=== PATIENT | male | born 1985 | race Caucasian/White ===

== ENCOUNTER 2020-09-14 19:04 | Emergency (ER) | payer MEDICAID, SELFPAY ==
--- NOTE | 2020-09-14 20:20 | XR_ITS ---
EXAMINATION: XR CHEST CLINICAL INFORMATION: Cough and shortness of breath COMPARISON: 11/17/2017 TECHNIQUE: Frontal view of the chest was obtained. FINDINGS: The lungs are hypoinflated. The heart size is normal. There is no evidence of CHF. Bibasilar atelectasis is present. No effusions, lung masses or consolidations are seen. XR/XR chest 1V IMPRESSION: Hypoinflated lungs with bibasilar atelectasis.
[2020-09-14 20:43] VITALS: BP 150/101; PULSE 88; RESP 22; TEMP 38.2; O2SAT 97; BMI 32.5
--- NOTE | 2020-09-14 21:01 | ED_ITS ---
HPI - URI/Sore Throat General Chief Complaint: Upper Respiratory Symptoms Stated Complaint: Cough Time Seen by Provider: 09/14/20 20:20 Source: patient Mode of arrival: ambulatory Limitations: no limitations History of Present Illness MD elicited complaint: cough Onset (ago): week(s) (1) Severity: moderate Description of mucous: clear Able to tolerate fluids by mouth: Yes Exacerbating factors: nothing Relieving factors: nothing Associated symptoms: denies other symptoms Treatments prior to arrival: none Related Data Previous Rx's Medication Instructions Recorded albuterol sulfate 2 puff INHALATION Q4-6H PRN #18 g 09/14/20 azithromycin [Zithromax Z-Cale] 250 mg PO DAILY 5 Days #6 tab 09/14/20 benzonatate [Tessalon Perles] 100 mg PO BID PRN #14 cap 09/14/20 Allergies Allergy/AdvReac Type Severity Reaction Status Date / Time No Known Allergies Allergy Unverified 06/16/20 18:34 Review of Systems Review of Systems: Constitutional: No Weight loss, No Fever, No Chills, No Night Sweats, No Fatigue, No Malaise ENT/Mouth: No Hearing loss, No Ear Pain, + Nasal Congestion, No Sinus Pain, No Hoarseness, No sore throat, No Rhinorrhea, No Swallowing Difficulty Eyes: No Eye Pain, No Swelling, No Redness, No Foreign Body, No Discharge, No Vision Changes Cardiovascular: No Chest Pain, No SOB, No Dyspnea on Exertion, No Orthopnea, No Edema, No Palpitations Respiratory: + Cough, No Sputum, No Wheezing, No Smoke Exposure, No Dyspnea Gastrointestinal: No Nausea, No Vomiting, No Diarrhea, No Constipation, No abdominal Pain, No Hematochezia, No Melena Genitourinary: no irregular bleeding, No Dysuria, No Urinary Frequency, No Hematuria, No Urinary Incontinence, No Urgency, No Flank Pain, No Urinary Flow Changes Musculoskeletal: No joint pain, No Myalgias, No Joint Swelling Skin: No Skin Lesions, No rash Neuro: No Weakness, No Numbness, No Paresthesias, No Loss of Consciousness, No Dizziness, No Headache Psych: No Social Issues Heme/Lymph: No Bruising, No Bleeding,No Lymphadenopathy Endocrine: No Polyuria, No Polydipsia, No Temperature Intolerance Yes all other systems are reviewed and are negative [facility] Past Medical History Medical History (Updated 09/14/20 @ 21:03 by Thiago Jamison NP) Hypertension Social History Social History Advance Directives: No Advance Directives Information Provided: No Physical Exam Vital Signs: Vital Signs: Last Vital Signs Temp 100.8 F H 09/14/20 20:43 Pulse 88 09/14/20 20:43 Resp 22 H 09/14/20 20:43 BP 150/101 H 09/14/20 20:43 Pulse Ox 97 09/14/20 20:43 Body Mass Index 32.5 Reviewed Const: General: cooperative and healthy appearing; No acute distress or intoxicated appearing Nutritional Appearance: average body habitus Orientation/consciousness: patient oriented x3 HENMT: Head: Yes normal to inspection Ears: hearing grossly normal bilaterally Eyes: General: appearance normal, both eyes and all related structures Visual Ramirez: normal visual ramirez by confrontation Neck: Neck: Yes normal visual inspection, No positive Brudzinski's sign, No positive Kernig's sign and No tender Thyroid: Thyroid normal Chest: Chest palpation & inspection: normal inspection of the chest Resp: Other: Fits of dry bronchial cough Effort & Inspection: normal respiratory effort Auscultation: clear to auscultation bilaterally Cardio: Jugular venous distension: no JVD Rhythm: regular rhythm Heart sounds: S1 normal heart sound present and S2 normal heart sound present GI: Inspection: Yes normal to inspection Percussion: Yes normal to percussion Auscultation: normal bowel sounds : General: Yes no CVA tenderness Back/Spine/Pelvis: Back: no CVA tenderness Skin: General skin exam: no rashes or lesions noted Neuro: General: patient oriented x3 Extrem: General: Yes normal to inspection Discharge Plan Discharge Clinical Impression: Upper respiratory infection Patient Disposition: Home, Self-Care Instructions: Upper Respiratory Infection (ED) Additional Instructions: Drink plenty of fluids Take medication prescribed Self-isolation/social distancing We have tested for COVID-19 this may take up to 3-5 days results we will call you to results Return if any concerns or worsening symptoms Thank you Prescriptions: New azithromycin [Zithromax Z-Cale] 250 mg tablet 250 mg PO DAILY 5 Days Qty: 6 RF: 0 benzonatate [Tessalon Perles] 100 mg capsule 100 mg PO BID PRN (Reason: cough) Qty: 14 RF: 0 albuterol sulfate 90 mcg/actuation HFA aerosol inhaler 2 puff inhalation Q4-6H PRN (Reason: shortness of breath or wheezing) Qty: 18 RF: 0 Referrals: Physician,Unknown [Primary Care Provider] - 1 week
== END 2020-09-14 21:29 | disposition home or self-care (01) ==
PROVIDERS: Nurse Practitioner Primary Care; Emergency Provider Emergency Medicine
DX: U07.1 COVID-19 (principal); J06.9 Acute upper respiratory infection, unspecified; I10 Essential (primary) hypertension; Z79.899 Other long term (current) drug therapy
CPT/HCPCS: 71045; 99283; U0003

== ENCOUNTER 2021-09-07 21:14 | Emergency (ER) | payer OTHER, SELFPAY ==
--- NOTE | ~2021-09-07 | XR_ITS ---
EXAMINATION: XR KNEE, LEFT CLINICAL INFORMATION: Unable to completely straighten knee. Wears a brace. COMPARISON: None TECHNIQUE: Four views of the left knee. FINDINGS: Bones and soft tissues are unremarkable aside from the presence of a probable joint effusion. No fractures. Alignment is anatomic. Joint spaces are well maintained. No abnormal soft tissue calcification. XR/XR knee LT 4V IMPRESSION: Small knee joint effusion
[2021-09-07 21:29] VITALS: BP 192/116; PULSE 89; RESP 20; TEMP 36.6; O2SAT 99; BMI 30.9
--- NOTE | 2021-09-07 22:44 | ED.LOWEXIN ---
HPI - Extremity Injury (Lower) General Chief Complaint: Extremity Injury, Lower Stated Complaint: Knee pain Source: patient Mode of arrival: ambulatory Limitations: no limitations History of Present Illness HPI Narrative: 36-year-old male presents with 1 week of left knee pain. Stated that he was lifting heavy box and fell into a rock hitting the lateral left side of his knee. He has been using ice, elevation, compression with poor effect. He has not taken any [id number] pain medications. MD complaint: knee injury Onset (ago): week(s) (1) Type of Injury: blunt Place: work Severity: moderate Severity scale (1-10): 6 Relieving factors: immobilization and rest Exacerbating factors: weight bearing, movement and palpation Context: direct blow Associated symptoms: swelling Other symptoms: none Treatments prior to arrival: cold therapy Related Data Previous Rx's Medication Instructions Recorded albuterol sulfate 90 mcg/actuation 2 puff INHALATION Q4-6H PRN #18 g 09/14/20 aerosol inhaler azithromycin 250 mg tablet 250 mg PO DAILY 5 Days #6 tab 09/14/20 (Zithromax Z-Cale) benzonatate 100 mg capsule 100 mg PO BID PRN #14 cap 09/14/20 (Tessalon Perles) Allergies Allergy/AdvReac Type Severity Reaction Status Date / Time No Known Allergies Allergy Verified 09/07/21 21:29 Review of Systems Review of Systems: Constitutional: No Fever, No Chills ENT/Mouth: No Ear Pain, No Hoarseness, No sore throat Eyes: No Eye Pain, No Swelling, No Redness, No Foreign Body Cardiovascular: No Chest Pain, No SOB Respiratory: No Cough, No Dyspnea Gastrointestinal: No Nausea, No Vomiting, No Diarrhea, No abdominal Pain Genitourinary: No Dysuria, No Hematuria Musculoskeletal: positive left knee pain, No Myalgias, No Joint Swelling Skin: No Skin lacerations, No rash Neuro: No Weakness, No Numbness, No Paresthesias, No Loss of Consciousness, No Dizziness, No Headache Psych: No Anxiety/Panic, No Depression Heme/Lymph: no easy bruising, no Lymphadenopathy Endocrine: No Polyuria, No Polydipsia Yes all other systems are reviewed and are negative [facility] Past Medical History Attestation statement: The following information was validated with the patient. Source: old records reviewed Medical History Hypertension Social History Social History Advance Directives: No Advance Directives Information Provided: Yes Physical Exam Vital Signs: Vital Signs: Last Vital Signs Temp 97.9 F 09/07/21 21:29 Pulse 89 09/07/21 21:29 Resp 20 09/07/21 21:29 BP 192/116 H 09/07/21 21:29 Pulse Ox 99 09/07/21 21:29 BMI result Body Mass Index 30.9 Appearance: Alert. Oriented X3. No acute distress. Eyes: Pupils equal, round and reactive to light. ENT: Pharynx normal. Neck: Normal inspection. Neck supple. CVS: Normal heart rate and rhythm. Pulses normal. Respiratory: No respiratory distress. Breath sounds normal. Abdomen: Soft and nontender. Skin: Skin warm and dry. Normal skin color. Normal skin turgor. Extremities: No lower extremity edema. Full range of motion to all extremities. Neuro: No motor deficit. No sensory deficit. Cranial nerves 2-12 intact. Course Course Course Narrative: 36-year-old male presents with left knee injury approximately 1 week ago. X-rays do indicate a small knee effusion. Patient is ambulatory does have full range of motion and strength. Plan of care is for Ben wrap, NSAIDs, and referral to Orthopedics. Patient has a wound on the bottom of his foot left side consistent with Narayanan's neuroma. Will refer to Podiatry. Patient verbalized understanding of and agrees to plan of care discharge. MDM - Extremity Injury (Lower) MDM Narrative Medical decision making narrative: Knee effusion, ligament injury, tendon injury Differential Diagnosis Differential diagnosis: Likely acute internal derangement of knee Medical Records Attestation: I reviewed the patient's medical records. Imaging Data Left knee x-ray: Attestation: I personally reviewed and interpreted this imaging study as follows: Radiologist's impression: EXAMINATION: XR KNEE, LEFT CLINICAL INFORMATION: Unable to completely straighten knee. Wears a brace.? COMPARISON: None? TECHNIQUE: Four views of the left knee. FINDINGS: Bones and soft tissues are unremarkable aside from the presence of a probable joint effusion. No fractures.? Alignment is anatomic. Joint spaces are well maintained. No abnormal soft tissue calcification.? XR/XR knee LT 4V IMPRESSION: Small knee joint effusion ? Discharge Plan Discharge Clinical Impression: Effusion of left knee joint, Narayanan's neuroma of left foot Patient Disposition: Home, Self-Care Instructions: Swollen Knee Joint (ED), Narayanan Neuroma (ED), R.I.C.E. Treatment (ED) Additional Instructions: You were evaluated for left knee pain after injury sustained at work. X-rays indicate knee effusion. Please use rest, ice, elevation and compression. Please use Tylenol and Motrin as needed for pain management. You may consider following up with orthopedics for further follow-up. Please follow-up with Podiatry for suspected Narayanan's neuroma to the left foot. Thank you for choosing this emergency department for evaluation. Please follow-up with primary care physician as needed. Return to the emergency department for any new, concerning, or worsening symptoms. Prescriptions: No Action azithromycin [Zithromax Z-Cale] 250 mg tablet 250 mg PO DAILY 5 Days Qty: 6 RF: 0 benzonatate [Tessalon Perles] 100 mg capsule 100 mg PO BID PRN (Reason: cough) Qty: 14 RF: 0 albuterol sulfate 90 mcg/actuation HFA aerosol inhaler 2 puff inhalation Q4-6H PRN (Reason: shortness of breath or wheezing) Qty: 18 RF: 0 Referrals: Kendra Rankin PA-C [Physician Graining Operator] - 2 days (Left knee effusion) Eduard Madera [Physician] - 2 days (Suspected Narayanan's neuroma left foot) Stand Alone Forms: Work/School Release Interventions: ED Discharge Assessment Last Done: 09/07/21 23:53 Discharge Date/Time: 09/07/21 23:55
== END 2021-09-07 23:55 | disposition home or self-care (01) ==
PROVIDERS: Emergency Provider Student in an Organized Health Care Education/Training Program; PCP Internal Medicine
DX: Z04.2 Encounter for examination and observation following work accident (principal); M25.462 Effusion, left knee; G57.62 Lesion of plantar nerve, left lower limb
CPT/HCPCS: 73564; 99283

== ENCOUNTER 2022-08-09 17:30 | Emergency (ER) | payer OTHER, SELFPAY ==
--- NOTE | ~2022-08-09 | XR_ITS ---
EXAMINATION: XR knee LT 3V CLINICAL INFORMATION: Reason for Exam swelling, pain COMPARISON: Knee radiographs 09/07/2021 TECHNIQUE: Four views of the knee FINDINGS: No acute fracture or dislocation. Mild degenerative changes of the knee with spurring of the patellofemoral compartment. Trace suprapatellar joint effusion. XR/XR knee LT 3V IMPRESSION: 1. Mild degenerative changes of the knee with spurring of the patellofemoral compartment. 2. Trace suprapatellar joint effusion.
[2022-08-09 18:37] VITALS: BP 231/127; PULSE 78; RESP 18; TEMP 36.6; O2SAT 97; BMI 30.9
--- NOTE | 2022-08-09 18:38 | ED_ITS ---
HPI - Extremity Injury (Lower) General Chief Complaint: General Medical Stated Complaint: Left swollen knee Time Seen by Provider: 08/09/22 23:51 Related Data Previous Rx's Medication Instructions Recorded albuterol sulfate 90 mcg/actuation 2 puff inhalation Q4-6H PRN 09/14/20 aerosol inhaler shortness of breath or wheezing #18 grams azithromycin 250 mg tablet 250 mg PO DAILY 5 days #6 tabs 09/14/20 (Zithromax Z-Cale) benzonatate 100 mg capsule 100 mg PO BID PRN cough #14 caps 09/14/20 (Tessalon Perles) Allergies Allergy/AdvReac Type Severity Reaction Status Date / Time No Known Allergies Allergy Verified 08/09/22 18:36 [facility] Past Medical History Medical History Hypertension Social History Social History Advance Directives: No Physical Exam Vital Signs: Vital Signs: Last Vital Signs Temp 97.8 F 08/09/22 18:37 Pulse 78 08/09/22 18:37 Resp 18 08/09/22 18:37 BP 231/127 H 08/09/22 18:37 Pulse Ox 97 08/09/22 18:37 O2 Del Method 08/09/22 18:37 BMI result Body Mass Index 30.9 Course Course Course Narrative: RME--37yoM /PMHx HTN (reports compliance with meds) c/o L knee pain x mos s/p work injury. Very HTNsive in triage, takes HCTZ, Metoprolol, Lisiopril and Amlodipine. Denies CARDONA, visual changes, CP Plan: XR, Labs, EKG MDM - Extremity Injury (Lower) Lab Data Result diagrams: 08/09/22 19:44 08/09/22 19:44 Labs: Lab Results 08/09/22 08/09/22 08/09/22 Range/Units 19:44 19:44 19:44 WBC 8.2 (4.8-10.8) X10*3/uL RBC 5.29 (4.60-5.80) X10*6/uL Hgb 14.9 (14.0-18.0) g/dl Hct 43.5 (42.0-52.0) % MCV 82.2 (80.0-98.0) fL MCH 28.2 (27.0-33.0) pg MCHC 34.3 (31.0-36.0) g/dl RDW 12.8 (11.0-16.0) % Plt Count 240 (160-400) X10*3/uL MPV 11.1 (9.4-12.4) fL Immature Gran % (Auto) 0.1 (0.0-0.4) % Neut % (Auto) 55.4 (45-73) % Lymph % (Auto) 34.3 (20-40) % [place] % (Auto) 8.2 (2-11) % Eos % (Auto) 1.5 (0-4) % Baso % (Auto) 0.5 (0-2) % Lymph # (Auto) 2.8 (1.2-4.9) X10*3/uL [place] # (Auto) 0.7 (0.1-1.2) X10*3/uL Eos # (Auto) 0.1 (0.0-0.4) X10*3/uL Baso # (Auto) 0.0 (0.0-0.2) X10*3/uL Abs Immat Gran (auto) 0.01 (0.00-0.03) X10*3/uL Absolute Neuts (auto) 4.6 (2.0-8.3) x10*3/uL Absolute Nucleated RBC 0.000 (0.0-0.012) X10*3/uL Nucleated RBC % (auto) 0.0 (0.0-0.2) /100WBC Sodium 142 (135-145) mmol/L Potassium 3.6 (3.3-5.1) mmol/L Chloride 104 (96-108) mmol/L Carbon Dioxide 26 (22-29) mmol/L Anion Gap 16 (12-20) BUN 20 H (9-16) mg/dL Creatinine 1.03 (0.5-1.4) mg/dL Estim Creat Clear Calc 94.6 Estimated GFR > 60 Random Glucose 96 (60-115) mg/dL Calcium 9.9 (8.4-10.2) mg/dL Troponin I High Sens 3.7 (<3.5-35.0) ng/L Discharge Plan Discharge Clinical Impression: HTN (hypertension), Knee pain Patient Disposition: Elopement Prescriptions: No Action azithromycin [Zithromax Z-Cale] 250 mg tablet 250 mg PO DAILY 5 Days Qty: 6 0RF benzonatate [Tessalon Perles] 100 mg capsule 100 mg PO BID PRN (Reason: cough) Qty: 14 0RF albuterol sulfate 90 mcg/actuation HFA aerosol inhaler 2 puff inhalation Q4-6H PRN (Reason: shortness of breath or wheezing) Qty: 18 0RF Interventions: LWBS Worksheet Last Done: 08/10/22 00:07 Discharge Date/Time: 08/10/22 00:07
--- NOTE | 2022-08-09 18:43 | ECG_ITS ---
Test Reason : hypertension Blood Pressure : / mmHG Vent. Rate : 075 BPM Atrial Rate : 075 BPM P-R Int : 142 ms QRS Dur : 088 ms QT Int : 378 ms P-R-T Axes : 037 014 012 degrees QTc Int : 422 ms Normal sinus rhythm Normal ECG When compared with ECG of 03-JUL-2018 14:27, No significant change was found Referred By: Teri Haynes Electronically Signed By:ALLA CHRISTIANSON MD
[2022-08-09 19:50] LABS: MANUAL DIFF FLAG NO
[2022-08-09 19:52] LABS: Basophils Percent Auto 0.5 % (0-2); Eosinophils Absolute Auto 0.1 X10*3/uL (0.0-0.4); Eosinophils Percent Auto 1.5 % (0-4); Hematocrit 43.5 % (42.0-52.0); Hemoglobin 14.9 g/dl (14.0-18.0); Imm Gran Abs Auto 0.01 X10*3/uL (0.00-0.03); Imm Gran Pct Auto 0.1 % (0.0-0.4); Lymphocytes Absolute Auto 2.8 X10*3/uL (1.2-4.9); Lymphocytes Percent Auto 34.3 % (20-40); Mean Corpuscular HGB Conc 34.3 g/dl (31.0-36.0); Mean Corpuscular Hemoglobin 28.2 pg (27.0-33.0); Mean Corpuscular Volume 82.2 fL (80.0-98.0); Mean Platelet Volume 11.1 fL (9.4-12.4); Monocytes Absolute Auto 0.7 X10*3/uL (0.1-1.2); Monocytes Percent Auto 8.2 % (2-11); Neutrophils Absolute Auto 4.6 x10*3/uL (2.0-8.3); Neutrophils Percent Auto 55.4 % (45-73); Platelet Count 240 X10*3/uL (160-400); Red Blood Count 5.29 X10*6/uL (4.60-5.80); Red Cell Distribution Width 12.8 % (11.0-16.0); White Blood Count 8.2 X10*3/uL (4.8-10.8)
[2022-08-09 20:06] LABS: Anion Gap 16 (12-20); Blood Urea Nitrogen 20 mg/dL (9-16); Calcium 9.9 mg/dL (8.4-10.2); Carbon Dioxide 26 mmol/L (22-29); Chloride 104 mmol/L (96-108); Creatinine Clr Calc Pharmacy 94.6; Estimated Glomerular Filt Rate > 60; Glucose Random 96 mg/dL (60-115); Potassium 3.6 mmol/L (3.3-5.1); Sodium 142 mmol/L (135-145)
[2022-08-09 20:15] LABS: Troponin-I High Sensitivity 3.7 ng/L (<3.5-35.0)
== END 2022-08-10 00:07 | disposition left against medical advice (07) ==
PROVIDERS: Physician Assistant; Emergency Provider Emergency Medicine; PCP Internal Medicine
DX: M25.562 Pain in left knee (principal); I10 Essential (primary) hypertension
CPT/HCPCS: 36415; 73562; 80048; 84484; 85025; 93005; 99281; 99283

== ENCOUNTER 2022-11-14 19:10 | Emergency (ER) | payer OTHER, SELFPAY ==
[2022-11-14] VITALS (8 sets, daily range): BP systolic 160–217; BP diastolic 92–127; PULSE 73–96; RESP 18–22; TEMP 36.8; O2SAT 73–99; BMI 30.9
--- NOTE | ~2022-11-14 | CT_ITS ---
EXAMINATION: CT ANGIOGRAM CHEST CLINICAL INFORMATION: Severe chest pain, hypertensive. COMPARISON: No similar priors. TECHNIQUE: Multiple axial images were obtained through the chest after the administration of 70 mL of Omnipaque 350 intravenous contrast. Extensive vascular post-processing including two-dimensional and three-dimensional reformatted images were created and reviewed on an independent workstation. This CT examination was performed using dose optimization techniques as appropriate, variously including the following: *Automated exposure control *Adjustment of mA and/or kV according to patient size (this includes techniques or standardized protocols for targeted exams where dose is matched to indication/reason for exam; i.e. extremities or head) *Use of iterative reconstruction technique DLP: 330 mGy-cm FINDINGS: VASCULAR: The thoracic aorta is normal in caliber without evidence of dissection. Bovine arch branching pattern of the aortic arch with a common origin of the brachiocephalic artery and left common carotid artery. Evaluation of intramural hematoma is limited in the absence of a noncontrast phase. No filling defects are identified within the pulmonary arteries. The included portions of the upper abdominal aorta are within normal limits without evidence of dissection. The celiac trunk, included portions of the proximal SMA and included portions of the renal arteries are patent. NONVASCULAR: Lung: No focal consolidation or significant groundglass disease. No suspicious pulmonary nodules. Central airways are patent. Mediastinum: Normal heart size. Mild coronary artery calcifications are noted. No pericardial effusion. No hilar or mediastinal lymphadenopathy. Normal thyroid gland. Pericardium/Pleura: No pleural effusion. No pleural mass or thickening. No pneumothorax. Chest Wall/Axilla: No lymphadenopathy by size criteria. Upper abdomen: Hepatic steatosis. Nonspecific gastric distention. Osseus Structures: No acute or aggressive osseous findings. CT/CT angio chest aorta IMPRESSION: 1. No evidence of aortic dissection. 2. No acute cardiopulmonary findings. 3. Hepatic steatosis. 4. Nonspecific gastric distention that could be seen in a postprandial state, gastroparesis or gastric outlet obstruction.
--- NOTE | ~2022-11-14 | XR_ITS ---
EXAMINATION: XR CHEST CLINICAL INFORMATION: Chest pain COMPARISON: 09/14/2020 TECHNIQUE: 2 views of the chest were obtained. FINDINGS: Cardiac leads overlie the chest. The lungs are well expanded. There is no focal consolidation, edema, or effusion. No pneumothorax. The cardiomediastinal silhouette is within normal limits. No acute osseous abnormality. XR/XR chest 2V IMPRESSION: Clear lungs.
--- NOTE | 2022-11-14 19:20 | ED_ITS ---
HPI - Chest Pain General Chief Complaint: Chest Pain <Annie Zuluaga CNP - Last Filed: 11/14/22 19:38> Stated Complaint: Chest pain <Annie Zuluaga CNP - Last Filed: 11/14/22 19:38> Time Seen by Provider: 11/14/22 19:46 <Annie Zuluaga CNP - Last Filed: 11/14/22 19:38> Source: patient <Jayde Gorman MD - Last Filed: 11/14/22 23:15> Mode of arrival: ambulatory <Jayde Gorman MD - Last Filed: 11/14/22 23:15> History of Present Illness HPI narrative: 37-year-old male with history hypertension presents with mild left-sided chest pain that he woke up with this morning, does not recall if he took his blood pressure medication and states that he went to work and then after lifting a heavy machine? and then states he began having severe, constant chest pain that radiates across to into the right side, worsens with deep inspiration and has some mild dizziness but denies headache, nausea, vomiting. <Jayde Gorman MD - Last Filed: 11/14/22 23:15> Related Data Home Medications: Home Medications Medication Instructions Recorded Confirmed amlodipine 10 mg tablet 10 mg PO DAILY 11/14/22 11/14/22 hydrochlorothiazide 25 mg tablet 25 mg PO DAILY 11/14/22 11/14/22 lisinopril 40 mg tablet 40 mg PO DAILY 11/14/22 11/14/22 metoprolol succinate 50 mg 50 mg PO DAILY 11/14/22 11/14/22 tablet,extended release 24 hr Previous Rx's Medication Instructions Recorded albuterol sulfate 90 mcg/actuation 2 puff inhalation Q4-6H PRN 09/14/20 aerosol inhaler shortness of breath or wheezing #18 grams azithromycin 250 mg tablet 250 mg PO DAILY 5 days #6 tabs 09/14/20 (Zithromax Z-Cale) benzonatate 100 mg capsule 100 mg PO BID PRN cough #14 caps 09/14/20 (Tessalon Perles) <Annie Zuluaga CNP - Last Filed: 11/14/22 19:38> Allergies/Adverse Reactions: Allergies Allergy/AdvReac Type Severity Reaction Status Date / Time No Known Allergies Allergy Verified 11/14/22 19:25 <Annie Zuluaga CNP - Last Filed: 11/14/22 19:38> Review of Systems Review of Systems: Pertinent positives and negatives as stated in HPI <Jayde Gorman MD - Last Filed: 11/14/22 23:15> PMFSH Past Medical History Source: nursing notes reviewed <Jayde Gorman MD - Last Filed: 11/14/22 23:15> Medical History: Medical History Hypertension <Annie Zuluaga CNP - Last Filed: 11/14/22 19:38> Social History Social History: Social History Alcohol intake: never Smoked in Last 30 Days: No Use of substances other than those prescribed or required for medical reasons: No Advance Directives: No Advance Directives Information Provided: No <Annie Zuluaga CNP - Last Filed: 11/14/22 19:38> Physical Exam Vital Signs: Vital Signs: Last Vital Signs Temp 98.2 F 11/14/22 19:17 Pulse 86 11/14/22 23:13 Resp 22 H 11/14/22 23:13 BP 160/92 H 11/14/22 23:13 Pulse Ox 97 11/14/22 23:13 O2 Del Method 11/14/22 23:13 BMI result Body Mass Index 30.9 <Annie Zuluaga CNP - Last Filed: 11/14/22 19:38> Vital Signs: Last Vital Signs Temp 98.2 F 11/14/22 19:17 Pulse 86 11/14/22 23:13 Resp 22 H 11/14/22 23:13 BP 160/92 H 11/14/22 23:13 Pulse Ox 97 11/14/22 23:13 O2 Del Method 11/14/22 23:13 BMI result Body Mass Index 30.9 VITAL SIGNS: Reviewed. GENERAL: Well developed, well nourished, in moderate distress. HEAD: Normocephalic/atraumatic EYES: PERRLA, EOMI EARS: Ext canals without abnormality LUNGS: Normal breath sounds. No adventitious sounds or accessory muscle use. SpO2<99> CARDIOVASCULAR: Regular rate and rhythm without noted murmurs, no JVD or lower extremity edema. ABDOMEN: Soft, non-tender, non-distended with bowel sounds. MUSCULOSKELETAL: No tenderness, deformities, or effusions noted on gross inspection. EXTREMITIES: No cyanosis, clubbing or edema. SKIN: Inspection of the skin reveals no rashes NEUROLOGIC: Alert and oriented x 4. Strength and sensation to light touch were grossly intact x 4. <Jayde Gorman MD - Last Filed: 11/14/22 23:15> Course Course Course Narrative: This is an RME: Additional HPI, ROS, PE not included below will be deferred to primary provider. Patient states he awoke this morning with left anterior chest pain, intermittent in nature, lasting a few minutes and self res olves. Patient states that he was lifting a heavy machine. Few hours later developed worsening pain to left anterior chest. Pain is made worse with particular movements, movement of the left arm, and deep breaths. Denies dizziness, lightheadedness, shortness of breath, difficulty breathing, upper respiratory symptoms, nausea, vomiting, abdominal pain. Noted to be hypertensive during initial examination to 217/127, states ?it is always high?, reports compliance with antihypertensives; metoprolol ER 50 mg daily, HCTZ 25 mg daily, lisinopril 40 mg daily, amlodipine 10 mg daily. Plan: Labs, EKG, viral testing, ASA 324mg PO. Spoke with charge master specialist, patient to be brought back to main ED <Annie Zuluaga CNP - Last Filed: 11/14/22 19:38> Medications Administered Discontinued Medications Generic Name Dose Route Start Last Admin Trade Name Shauna PRN Reason Stop Dose Admin Aspirin 324 mg 11/14/22 19:26 11/14/22 19:29 Aspirin 81 Mg Tab.Chew PO 11/14/22 19:27 324 mg ONCE ONE Administration Hydralazine HCl 5 mg 11/14/22 21:32 11/14/22 22:03 Hydralazine Hcl 20 Mg/Ml Vial IVPUSH 11/14/22 21:33 5 mg ONCE ONE Administration Protocol Iohexol 100 ml 11/14/22 20:28 11/14/22 20:29 Iohexol 350 Mg/Ml 100 Ml Infus..Btl IV 11/14/22 20:29 70 ml ONCE ONE Administration Labetalol HCl 5 mg 11/14/22 19:48 11/14/22 20:10 Labetalol Hcl 100 Mg/20 Ml Vial IVPUSH 11/14/22 19:49 5 mg ONCE ONE Administration <Annie Zuluaga CNP - Last Filed: 11/14/22 19:38> Medications Administered Discontinued Medications Generic Name Dose Route Start Last Admin Trade Name Shauna PRN Reason Stop Dose Admin Aspirin 324 mg 11/14/22 19:26 11/14/22 19:29 Aspirin 81 Mg Tab.Chew PO 11/14/22 19:27 324 mg ONCE ONE Administration Hydralazine HCl 5 mg 11/14/22 21:32 11/14/22 22:03 Hydralazine Hcl 20 Mg/Ml Vial IVPUSH 11/14/22 21:33 5 mg ONCE ONE Administration Protocol Iohexol 100 ml 11/14/22 20:28 11/14/22 20:29 Iohexol 350 Mg/Ml 100 Ml Infus..Btl IV 11/14/22 20:29 70 ml ONCE ONE Administration Labetalol HCl 5 mg 11/14/22 19:48 11/14/22 20:10 Labetalol Hcl 100 Mg/20 Ml Vial IVPUSH 11/14/22 19:49 5 mg ONCE ONE Administration <Jayde Gorman MD - Last Filed: 11/14/22 23:15> Medical Decision Making Medical Decision Making MDM Narrative: This is a 37-year-old male who has obvious hypertensive crisis with severe chest pain that is radiating and worsens with breathing quite concerning for possible dissection as I have reviewed his investigations which are without any acute findings to better explain the presentation. While it is tempting to think that he may have torn a pectoralis muscle at work the pain has been since he woke up. Patient received 5 mg of labetalol. 2131: Informed by nursing that patient's blood pressure was still quite a bit elevated and so 5 mg of hydralazine was ordered. 0: Remaining investigations completely reviewed to include CT angio, and blood pressure is and my interpretation is that patient was experiencing a hypertensive crisis episode as his blood pressure is now 140s over 90s and he denies any current chest pain. <Jayde Gorman MD - Last Filed: 11/14/22 23:15> Differential Diagnosis Please see the discussion above <Jayde Gorman MD - Last Filed: 11/14/22 23:15> Lab Data Please see the discussion above <Jayde Gorman MD - Last Filed: 11/14/22 23:15> Result Diagrams: 11/14/22 19:37 11/14/22 19:37 <Annie Zuluaga CNP - Last Filed: 11/14/22 19:38> Labs: Lab Results 11/14/22 11/14/22 11/14/22 Range/Units 19:37 19:37 19:37 WBC 7.0 (4.8-10.8) X10*3/uL RBC 5.22 (4.60-5.80) X10*6/uL Hgb 15.0 (14.0-18.0) g/dl Hct 43.6 (42.0-52.0) % MCV 83.5 (80.0-98.0) fL MCH 28.7 (27.0-33.0) pg MCHC 34.4 (31.0-36.0) g/dl RDW 12.8 (11.0-16.0) % Plt Count 217 (160-400) X10*3/uL MPV 11.3 (9.4-12.4) fL Immature Gran % (Auto) 0.1 (0.0-0.4) % Neut % (Auto) 57.8 (45-73) % Lymph % (Auto) 33.2 (20-40) % [place] % (Auto) 6.6 (2-11) % Eos % (Auto) 1.9 (0-4) % Baso % (Auto) 0.4 (0-2) % Lymph # (Auto) 2.3 (1.2-4.9) X10*3/uL [place] # (Auto) 0.5 (0.1-1.2) X10*3/uL Eos # (Auto) 0.1 (0.0-0.4) X10*3/uL Baso # (Auto) 0.0 (0.0-0.2) X10*3/uL Abs Immat Gran (auto) 0.01 (0.00-0.03) X10*3/uL Absolute Neuts (auto) 4.0 (2.0-8.3) x10*3/uL Absolute Nucleated RBC 0.000 (0.0-0.012) X10*3/uL Nucleated RBC % (auto) 0.0 (0.0-0.2) /100WBC Sodium 140 (135-145) mmol/L Potassium 4.0 (3.3-5.1) mmol/L Chloride 102 (96-108) mmol/L Carbon Dioxide 28 (22-29) mmol/L Anion Gap 14 (12-20) BUN 16 (9-16) mg/dL Creatinine 1.07 (0.5-1.4) mg/dL Estim Creat Clear Calc 91.1 Estimated GFR > 60 Random Glucose 127 H (60-115) mg/dL Calcium 9.6 (8.4-10.2) mg/dL Total Bilirubin 0.7 (0.0-1.0) mg/dL AST 25 (5-37) U/L ALT 26 (0-40) U/L Alkaline Phosphatase 58 (39-117) U/L Troponin I High Sens 7.6 (<3.5-35.0) ng/L B-Natriuretic Peptide (<100) pg/mL Total Protein 7.4 (6.5-8.0) g/dL Albumin 4.6 (3.5-5.0) g/dL Lipase 26 (8-78) U/L Urine Color Urine Appearance Urine pH (5.0-9.0) Ur Specific [place] (1.005-1.025) Urine Protein (Neg-Trace) mg/dL Urine Glucose (UA) (Negative) mg/dL Urine Ketones (Negative) mg/dL Urine Blood (Negative) Urine Nitrite (Negative) Ur Leukocyte Esterase (Negative) COVID-19 (AMY) (Negative) COVID-19 Clin Com Influenza Type A (DEEPALI) (Negative) Influenza Type B (DEEPALI) (Negative) Influenza A & B Note 11/14/22 11/14/22 11/14/22 Range/Units 19:37 19:37 19:37 WBC (4.8-10.8) X10*3/uL RBC (4.60-5.80) X10*6/uL Hgb (14.0-18.0) g/dl Hct (42.0-52.0) % MCV (80.0-98.0) fL MCH (27.0-33.0) pg MCHC (31.0-36.0) g/dl RDW (11.0-16.0) % Plt Count (160-400) X10*3/uL MPV (9.4-12.4) fL Immature Gran % (Auto) (0.0-0.4) % Neut % (Auto) (45-73) % Lymph % (Auto) (20-40) % [place] % (Auto) (2-11) % Eos % (Auto) (0-4) % Baso % (Auto) (0-2) % Lymph # (Auto) (1.2-4.9) X10*3/uL [place] # (Auto) (0.1-1.2) X10*3/uL Eos # (Auto) (0.0-0.4) X10*3/uL Baso # (Auto) (0.0-0.2) X10*3/uL Abs Immat Gran (auto) (0.00-0.03) X10*3/uL Absolute Neuts (auto) (2.0-8.3) x10*3/uL Absolute Nucleated RBC (0.0-0.012) X10*3/uL Nucleated RBC % (auto) (0.0-0.2) /100WBC Sodium (135-145) mmol/L Potassium (3.3-5.1) mmol/L Chloride (96-108) mmol/L Carbon Dioxide (22-29) mmol/L Anion Gap (12-20) BUN (9-16) mg/dL Creatinine (0.5-1.4) mg/dL Estim Creat Clear Calc Estimated GFR Random Glucose (60-115) mg/dL Calcium (8.4-10.2) mg/dL Total Bilirubin (0.0-1.0) mg/dL AST (5-37) U/L ALT (0-40) U/L Alkaline Phosphatase (39-117) U/L Troponin I High Sens (<3.5-35.0) ng/L B-Natriuretic Peptide 15 (<100) pg/mL Total Protein (6.5-8.0) g/dL Albumin (3.5-5.0) g/dL Lipase (8-78) U/L Urine Color Urine Appearance Urine pH (5.0-9.0) Ur Specific [place] (1.005-1.025) Urine Protein (Neg-Trace) mg/dL Urine Glucose (UA) (Negative) mg/dL Urine Ketones (Negative) mg/dL Urine Blood (Negative) Urine Nitrite (Negative) Ur Leukocyte Esterase (Negative) COVID-19 (AMY) Negative (Negative) COVID-19 Clin Com See Note Influenza Type A (DEEPALI) Negative (Negative) Influenza Type B (DEEPALI) Negative (Negative) Influenza A & B Note See Note 11/14/22 Range/Units 21:29 WBC (4.8-10.8) X10*3/uL RBC (4.60-5.80) X10*6/uL Hgb (14.0-18.0) g/dl Hct (42.0-52.0) % MCV (80.0-98.0) fL MCH (27.0-33.0) pg MCHC (31.0-36.0) g/dl RDW (11.0-16.0) % Plt Count (160-400) X10*3/uL MPV (9.4-12.4) fL Immature Gran % (Auto) (0.0-0.4) % Neut % (Auto) (45-73) % Lymph % (Auto) (20-40) % [place] % (Auto) (2-11) % Eos % (Auto) (0-4) % Baso % (Auto) (0-2) % Lymph # (Auto) (1.2-4.9) X10*3/uL [place] # (Auto) (0.1-1.2) X10*3/uL Eos # (Auto) (0.0-0.4) X10*3/uL Baso # (Auto) (0.0-0.2) X10*3/uL Abs Immat Gran (auto) (0.00-0.03) X10*3/uL Absolute Neuts (auto) (2.0-8.3) x10*3/uL Absolute Nucleated RBC (0.0-0.012) X10*3/uL Nucleated RBC % (auto) (0.0-0.2) /100WBC Sodium (135-145) mmol/L Potassium (3.3-5.1) mmol/L Chloride (96-108) mmol/L Carbon Dioxide (22-29) mmol/L Anion Gap (12-20) BUN (9-16) mg/dL Creatinine (0.5-1.4) mg/dL Estim Creat Clear Calc Estimated GFR Random Glucose (60-115) mg/dL Calcium (8.4-10.2) mg/dL Total Bilirubin (0.0-1.0) mg/dL AST (5-37) U/L ALT (0-40) U/L Alkaline Phosphatase (39-117) U/L Troponin I High Sens (<3.5-35.0) ng/L B-Natriuretic Peptide (<100) pg/mL Total Protein (6.5-8.0) g/dL Albumin (3.5-5.0) g/dL Lipase (8-78) U/L Urine Color Yellow Urine Appearance Clear Urine pH 6.5 (5.0-9.0) Ur Specific [place] >= 1.030 H (1.005-1.025) Urine Protein Negative (Neg-Trace) mg/dL Urine Glucose (UA) Negative (Negative) mg/dL Urine Ketones Negative (Negative) mg/dL Urine Blood Negative (Negative) Urine Nitrite Negative (Negative) Ur Leukocyte Esterase Negative (Negative) COVID-19 (AMY) (Negative) COVID-19 Clin Com Influenza Type A (DEEPALI) (Negative) Influenza Type B (DEEPALI) (Negative) Influenza A & B Note <Annie Zuluaga CNP - Last Filed: 11/14/22 19:38> Lab Results 11/14/22 11/14/22 11/14/22 Range/Units 19:37 19:37 19:37 WBC 7.0 (4.8-10.8) X10*3/uL RBC 5.22 (4.60-5.80) X10*6/uL Hgb 15.0 (14.0-18.0) g/dl Hct 43.6 (42.0-52.0) % MCV 83.5 (80.0-98.0) fL MCH 28.7 (27.0-33.0) pg MCHC 34.4 (31.0-36.0) g/dl RDW 12.8 (11.0-16.0) % Plt Count 217 (160-400) X10*3/uL MPV 11.3 (9.4-12.4) fL Immature Gran % (Auto) 0.1 (0.0-0.4) % Neut % (Auto) 57.8 (45-73) % Lymph % (Auto) 33.2 (20-40) % [place] % (Auto) 6.6 (2-11) % Eos % (Auto) 1.9 (0-4) % Baso % (Auto) 0.4 (0-2) % Lymph # (Auto) 2.3 (1.2-4.9) X10*3/uL [place] # (Auto) 0.5 (0.1-1.2) X10*3/uL Eos # (Auto) 0.1 (0.0-0.4) X10*3/uL Baso # (Auto) 0.0 (0.0-0.2) X10*3/uL Abs Immat Gran (auto) 0.01 (0.00-0.03) X10*3/uL Absolute Neuts (auto) 4.0 (2.0-8.3) x10*3/uL Absolute Nucleated RBC 0.000 (0.0-0.012) X10*3/uL Nucleated RBC % (auto) 0.0 (0.0-0.2) /100WBC Sodium 140 (135-145) mmol/L Potassium 4.0 (3.3-5.1) mmol/L Chloride 102 (96-108) mmol/L Carbon Dioxide 28 (22-29) mmol/L Anion Gap 14 (12-20) BUN 16 (9-16) mg/dL Creatinine 1.07 (0.5-1.4) mg/dL Estim Creat Clear Calc 91.1 Estimated GFR > 60 Random Glucose 127 H (60-115) mg/dL Calcium 9.6 (8.4-10.2) mg/dL Total Bilirubin 0.7 (0.0-1.0) mg/dL AST 25 (5-37) U/L ALT 26 (0-40) U/L Alkaline Phosphatase 58 (39-117) U/L Troponin I High Sens 7.6 (<3.5-35.0) ng/L B-Natriuretic Peptide (<100) pg/mL Total Protein 7.4 (6.5-8.0) g/dL Albumin 4.6 (3.5-5.0) g/dL Lipase 26 (8-78) U/L Urine Color Urine Appearance Urine pH (5.0-9.0) Ur Specific [place] (1.005-1.025) Urine Protein (Neg-Trace) mg/dL Urine Glucose (UA) (Negative) mg/dL Urine Ketones (Negative) mg/dL Urine Blood (Negative) Urine Nitrite (Negative) Ur Leukocyte Esterase (Negative) COVID-19 (AMY) (Negative) COVID-19 Clin Com Influenza Type A (DEEPALI) (Negative) Influenza Type B (DEEPALI) (Negative) Influenza A & B Note 11/14/22 11/14/22 11/14/22 Range/Units 19:37 19:37 19:37 WBC (4.8-10.8) X10*3/uL RBC (4.60-5.80) X10*6/uL Hgb (14.0-18.0) g/dl Hct (42.0-52.0) % MCV (80.0-98.0) fL MCH (27.0-33.0) pg MCHC (31.0-36.0) g/dl RDW (11.0-16.0) % Plt Count (160-400) X10*3/uL MPV (9.4-12.4) fL Immature Gran % (Auto) (0.0-0.4) % Neut % (Auto) (45-73) % Lymph % (Auto) (20-40) % [place] % (Auto) (2-11) % Eos % (Auto) (0-4) % Baso % (Auto) (0-2) % Lymph # (Auto) (1.2-4.9) X10*3/uL [place] # (Auto) (0.1-1.2) X10*3/uL Eos # (Auto) (0.0-0.4) X10*3/uL Baso # (Auto) (0.0-0.2) X10*3/uL Abs Immat Gran (auto) (0.00-0.03) X10*3/uL Absolute Neuts (auto) (2.0-8.3) x10*3/uL Absolute Nucleated RBC (0.0-0.012) X10*3/uL Nucleated RBC % (auto) (0.0-0.2) /100WBC Sodium (135-145) mmol/L Potassium (3.3-5.1) mmol/L Chloride (96-108) mmol/L Carbon Dioxide (22-29) mmol/L Anion Gap (12-20) BUN (9-16) mg/dL Creatinine (0.5-1.4) mg/dL Estim Creat Clear Calc Estimated GFR Random Glucose (60-115) mg/dL Calcium (8.4-10.2) mg/dL Total Bilirubin (0.0-1.0) mg/dL AST (5-37) U/L ALT (0-40) U/L Alkaline Phosphatase (39-117) U/L Troponin I High Sens (<3.5-35.0) ng/L B-Natriuretic Peptide 15 (<100) pg/mL Total Protein (6.5-8.0) g/dL Albumin (3.5-5.0) g/dL Lipase (8-78) U/L Urine Color Urine Appearance Urine pH (5.0-9.0) Ur Specific [place] (1.005-1.025) Urine Protein (Neg-Trace) mg/dL Urine Glucose (UA) (Negative) mg/dL Urine Ketones (Negative) mg/dL Urine Blood (Negative) Urine Nitrite (Negative) Ur Leukocyte Esterase (Negative) COVID-19 (AMY) Negative (Negative) COVID-19 Clin Com See Note Influenza Type A (DEEPALI) Negative (Negative) Influenza Type B (DEEPALI) Negative (Negative) Influenza A & B Note See Note 11/14/22 Range/Units 21:29 WBC (4.8-10.8) X10*3/uL RBC (4.60-5.80) X10*6/uL Hgb (14.0-18.0) g/dl Hct (42.0-52.0) % MCV (80.0-98.0) fL MCH (27.0-33.0) pg MCHC (31.0-36.0) g/dl RDW (11.0-16.0) % Plt Count (160-400) X10*3/uL MPV (9.4-12.4) fL Immature Gran % (Auto) (0.0-0.4) % Neut % (Auto) (45-73) % Lymph % (Auto) (20-40) % [place] % (Auto) (2-11) % Eos % (Auto) (0-4) % Baso % (Auto) (0-2) % Lymph # (Auto) (1.2-4.9) X10*3/uL [place] # (Auto) (0.1-1.2) X10*3/uL Eos # (Auto) (0.0-0.4) X10*3/uL Baso # (Auto) (0.0-0.2) X10*3/uL Abs Immat Gran (auto) (0.00-0.03) X10*3/uL Absolute Neuts (auto) (2.0-8.3) x10*3/uL Absolute Nucleated RBC (0.0-0.012) X10*3/uL Nucleated RBC % (auto) (0.0-0.2) /100WBC Sodium (135-145) mmol/L Potassium (3.3-5.1) mmol/L Chloride (96-108) mmol/L Carbon Dioxide (22-29) mmol/L Anion Gap (12-20) BUN (9-16) mg/dL Creatinine (0.5-1.4) mg/dL Estim Creat Clear Calc Estimated GFR Random Glucose (60-115) mg/dL Calcium (8.4-10.2) mg/dL Total Bilirubin (0.0-1.0) mg/dL AST (5-37) U/L ALT (0-40) U/L Alkaline Phosphatase (39-117) U/L Troponin I High Sens (<3.5-35.0) ng/L B-Natriuretic Peptide (<100) pg/mL Total Protein (6.5-8.0) g/dL Albumin (3.5-5.0) g/dL Lipase (8-78) U/L Urine Color Yellow Urine Appearance Clear Urine pH 6.5 (5.0-9.0) Ur Specific [place] >= 1.030 H (1.005-1.025) Urine Protein Negative (Neg-Trace) mg/dL Urine Glucose (UA) Negative (Negative) mg/dL Urine Ketones Negative (Negative) mg/dL Urine Blood Negative (Negative) Urine Nitrite Negative (Negative) Ur Leukocyte Esterase Negative (Negative) COVID-19 (AMY) (Negative) COVID-19 Clin Com Influenza Type A (DEEPALI) (Negative) Influenza Type B (DEEPALI) (Negative) Influenza A & B Note <Jayde Gorman MD - Last Filed: 11/14/22 23:15> Independent Interpretation I performed an independent interpretation of an: EKG <Jayde Gorman MD - Last Filed: 11/14/22 23:15> Interpretation: Normal sinus rhythm, HR-78, no STEMI, WI/QRS/QTC is within normal limits. There are Q-waves noted in isolated lead 3 <Jayde Gorman MD - Last Filed: 11/14/22 23:15> Radiology Impression Radiologist Impression: My interpretation is in agreement with radiology's impression of the imaging study. <Jayde Gorman MD - Last Filed: 11/14/22 23:15> External Record Review External record reviewed: Outpatient record and Prior outpatient labs <Jayde Gorman MD - Last Filed: 11/14/22 23:15> Chronic Conditions Patient?s care impacted by: Hypertension <Jayde Gorman MD - Last Filed: 11/14/22 23:15> Critical Care Time Critical Care Time Critical Care Time: Yes <Jayde Gorman MD - Last Filed: 11/14/22 23:15> Total Critical Care Time: 30 <Jayde Gorman MD - Last Filed: 11/14/22 23:15> Attestation: I personally attest to this time spent taking care of the patient. <Jayde Gorman MD - Last Filed: 11/14/22 23:15> Discharge Plan Discharge Clinical Impression: Chest pain, Hypertensive crisis <Annie Zuluaga CNP - Last Filed: 11/14/22 19:38> Patient Disposition: Home, Self-Care <Annie Zuluaga CNP - Last Filed: 11/14/22 19:38> Instructions: Chest Pain (ED), DASH Eating Plan (ED), Hypertensive Crisis (ED) <Annie Zuluaga CNP - Last Filed: 11/14/22 19:38> Additional Instructions: 1. Please follow-up with your primary care provider the next 1-2 days for a complete physical and further evaluation of your blood pressure. Take your blood pressure medication. Return to the ER for any worsening symptoms. <Annie Zuluaga CNP - Last Filed: 11/14/22 19:38> Prescriptions: No Action azithromycin [Zithromax Z-Cale] 250 mg tablet 250 mg PO DAILY 5 Days Qty: 6 0RF benzonatate [Tessalon Perles] 100 mg capsule 100 mg PO BID PRN (Reason: cough) Qty: 14 0RF albuterol sulfate 90 mcg/actuation HFA aerosol inhaler 2 puff inhalation Q4-6H PRN (Reason: shortness of breath or wheezing) Qty: 18 0RF metoprolol succinate 50 mg Tablet Extended Release 24 Hr 50 mg PO DAILY amlodipine 10 mg Tablet 10 mg PO DAILY hydrochlorothiazide 25 mg Tablet 25 mg PO DAILY lisinopril 40 mg Tablet 40 mg PO DAILY <Annie Zuluaga CNP - Last Filed: 11/14/22 19:38> Referrals: Jill Bravo [Primary Care Provider] - <Annie Zuluaga CNP - Last Filed: 11/14/22 19:38>
--- NOTE | 2022-11-14 19:23 | ECG_ITS ---
Test Reason : cp Blood Pressure : / mmHG Vent. Rate : 078 BPM Atrial Rate : 078 BPM P-R Int : 142 ms QRS Dur : 080 ms QT Int : 386 ms P-R-T Axes : 026 026 022 degrees QTc Int : 440 ms Normal sinus rhythm Normal ECG When compared with ECG of 09-AUG-2022 19:35, No significant change was found Referred By: Annie Zuluaga Electronically Signed By:Marcelino Charles
[2022-11-14] MEDS: Aspirin 81 MG TAB.CHEW 324 MG PO (19:29)
--- OUTSIDE RECORDS SUMMARY | 2022-11-14 19:33 | XMS_ITS | Continuity of Care Document ---
:1985 Author Organization [facility] enter/[facility] Address Unavailable , Care Team Providers Name Role Phone Jody Mooney Primary Care Physician [phone] Encounter [facility] – [place] Date(s): 07/12/21 - 09/10/21 [facility] Attending Physician: Jody Mooney Admitting Physician: Jody Mooney Allergies, Adverse Reactions, Alerts Substance Reaction Severity Status NKA Active Immunizations Given and Recorded Vaccine Date Status Refusal Reason SARS-CoV-2 (COVID-19) [id number] vaccine 03/21/21 Recorded tetanus/diphtheria/pertussis, acel(Tdap) 09/09/17 Given tetanus/diphtheria/pertussis, acel(Tdap) 10/01/16 Recorde d Medications amLODIPine 10 mg oral tablet 1 tablet, By Mouth, Daily, FOR BLOOD PRESSURE, # 30 tablet, 6 Refills, Maintenance, 07/12/21 11:52:00 EDT, [id number], 163, cm, 07/12/21 10:49:00 EDT, Height Start Date: 07/12/21 Status: Orderedblood pressure cuff blood pressure cuff, See Instructions, # 1 each, Refills 0, Tot. Refills 0, Maintenance, use to check blood pressure at home, 07/12/21 11:57:00 EDT, Supply, 163, cm, 07/12/21 10:49:00 EDT, Height Start Date: 07/12/21 Status: Orderedchlorthalidone 25 mg oral tablet 25 mg, 1, tablet, By Mouth, Daily, # 30 tablet, Refills 0, Tot. Refills 0, Maintenance, 07/12/21 11:51:00 EDT, Route to Pharmacy Electronically, [id number], Partial fill upon patient request if the prescription is for a schedul... Start Date: 07/12/21 Stop Date: 08/11/21 Status: OrderedCrutches See Instructions, # 1 pair, Maintenance, Right foot sprain, 12/05/10 22:32:39 Start Date: 12/05/10 Status: OrderedCrutches See Instructions, 1, 0, 0, 09/08/07 9:56:56, use as directed, ADS OPPT Start Date: 09/08/07 Status: Orderedlisinopril 40 mg oral tablet 1 tablet, By Mouth, Daily, FOR BLOOD PRESSURE, # 30 tablet, 6 Refills, Maintenance, 07/12/21 11:52:00 EDT, [id number], 163, cm, 07/12/21 10:49:00 EDT, Height Start Date: 07/12/21 Status: OrderedMetoprolol Succinate ER 50 mg oral tablet, extended release 1 tablet, By Mouth, Daily, # 30 tablet, 1 Refills, Maintenance, 07/12/21 11:52:00 EDT, [id number], 163, cm, 07/12/21 10:49:00 EDT, Height Start Date: 07/12/21 Status: OrderedTylenol 8 Hour 650 mg oral tablet, extended release 2 tablet = 1,300 mg, By Mouth, Every 8 hours, PRN as needed for pain, for back pain, # 50 tablet, 6 Refills, Maintenance, 02/05/20 11:19:00 EDT, ER Tablet, [id number], 163, cm, 10/09/18 14:13:00 EST, Height Start Date: 02/05/20 Status: Ordered Problem List Condition Effective Dates Status Health Status Informant Essential hypertension(Confirmed) Active Low back pain(Confirmed) Active Obesity (BMI 30.0-34.9)(Confirmed) Active Social History Social History Type Response Smoking Status Never smoker; Tobacco user i n household: No entered on: 04/23/18 Sex
--- OUTSIDE RECORDS SUMMARY | 2022-11-14 19:33 | XMS_ITS | Continuity of Care Document ---
:1985 Author Organization [facility] Address [address] [place] [id number]- Care Team Providers Name Role Phone Jody Mooney Primary Care Phys[place] [facility] [place] - 04/06/[address] [address] Attending Physician: Jody Mooney Admitting Physician: Jody Mooney Referring Physician: Jody Mooney Allergies, Adverse Reactions, Alerts No Known Allergies Immunizations Given and Recorded Vaccine Date Status Refusal Reason SARS-CoV-2 (COVID-19) [id number] vaccine 03/21/21 Recorded tetanus/diphtheria/pertussis, acel(Tdap) 09/09/17 Given tetanus/diphtheria/pertussis, acel(Tdap) 10/01/16 Recorde d Medications amLODIPine 10 mg oral tablet 1 tablet, By Mouth, Daily, FOR BLOOD PRESSURE, # 30 tablet, 6 Refills, Maintenance, 01/10/22 14:39:00 EDT, [id number], 163, cm, 01/10/22 14:11:00 EDT, Height Start Date: 01/10/22 Status: Orderedchlorthalidone 25 mg oral tablet 25 mg, 1, tablet, By Mouth, Daily, # 30 tablet, Refills 6, Tot. Refills 6, Maintenance, 01/10/22 14:39:00 EDT, Route to Pharmacy Electronically, [id number], Partial fill upon patient request if the prescription is for a schedul... Start Date: 01/10/22 Stop Date: 08/08/22 Status: OrderedCrutches See Instructions, # 1 pair, Maintenance, Right foot sprain, 12/05/10 22:32:39 Start Date: 12/05/10 Status: OrderedCrutches See Instructions, 1, 0, 0, 09/08/07 9:56:56, use as directed, [facility] Start Date: 09/08/07 Status: OrderedDigital Home BP monitor Digital Home BP monitor, See Instructions, # 1 each, Refills 0, Tot. Refills 0, Maintenance, Dx: HTNCheck BP daily, 12/08/21 17:25:00 EST, Supply Start Date: 12/08/21 Status: Orderedlisinopril 40 mg oral tablet 1 tablet, By Mouth, Daily, FOR BLOOD PRESSURE, # 30 tablet, 6 Refills, Maintenance, 01/10/22 14:39:00 EDT, [id number], 163, cm, 01/10/22 14:11:00 EDT, Height Start Date: 01/10/22 Status: OrderedMetoprolol Succinate ER 50 mg oral tablet, extended release 1 tablet, By Mouth, Daily, # 30 tablet, 6 Refills, Maintenance, 01/10/22 14:39:00 EDT, [id number], 163, cm, 01/10/22 14:11:00 EDT, Height Start Date: 01/10/22 Status: OrderedMobic 15 mg oral tablet 1 tablet = 15 mg, By Mouth, Daily, with food for back and knee pain, # 30 tablet, 2 Refills, Maintenance, 01/10/22 14:39:00 EDT, Tablet, [id number], Partial fill upon patient request if the prescription is for a schedule II opi... Start Date: 01/10/22 Status: OrderedTylenol 8 Hour 650 mg oral tablet, extended release 2 tablet = 1,300 mg, By Mouth, Every 8 hours, PRN as needed for pain, for back pain, # 50 tablet, 6 Refills, Maintenance, 02/05/20 11:19:00 EDT, ER Tablet, [facility], 163, cm, 10/09/18 14:13:00 EST, Height Start Date: 02/05/20 Status: Ordered Problem List Condition Effective Dates Status Health Status Informant Essential hypertension(Confirmed) Active Low back pain(Confirmed) Active Obese class I(Confirmed) Active Obesity (BMI 30.0-34.9)(Confirmed) Active Social History Social History Type Response Smoking Status Never smoker; Tobacco user i n household: No entered on: 04/23/18 Sex
--- OUTSIDE RECORDS SUMMARY | 2022-11-14 19:33 | XMS_ITS | Continuity of Care Document ---
:1985 Author Organization [facility] Address [address] [place] [address]- Care Team Providers Name Role Phone Passer Jody HARTMAN Primary Care Physician [phone] [place] [facility] [place]22 [facility] [address] [place], [place] [address] Allergies, Adverse Reactions, Alerts No Known Allergies Immunizations Given and Recorded Vaccine Date Status Refusal Reason SARS-CoV-2 (COVID-19) mRNA-[id number] vaccine 03/21/21 Recorded tetanus/diphtheria/pertussis, acel(Tdap) 09/09/17 Given tetanus/diphtheria/pertussis, acel(Tdap) 10/01/16 Recorde d Medications amLODIPine 10 mg oral tablet 1 tablet, By Mouth, Daily, FOR BLOOD PRESSURE., # 30 tablet, 2 Refills, Maintenance, 09/20/22 16:53:00 EST, [facility] 163, cm, 09/12/22 8:19:00 EST, Height, 84.7, kg, 09/10/22 10:40:00 EST, Dry Weight Start Date: 09/20/22 Status: Orderedchlorthalidone 25 mg oral tablet 1, tablet, By Mouth, Daily, Labs overdue. Order in system. Please go to any [facility], # 30 tablet, Refills 2, Tot. Refills 2, Maintenance, 07/26/22 16:18:00 EDT, Route to Pharmacy Electronically, [facility], 163,... Start Date: 07/26/22 Status: OrderedCrutches See Instructions, # 1 pair, Maintenance, Right foot sprain, 12/05/10 22:32:39 Start Date: 3/8/11 Status: OrderedCrutches See Instructions, 1, 0, 0, 09/08/07 9:56:56, use as directed, [facility] Start Date: 09/08/07 Status: OrderedDigital Home BP monitor Digital Home BP monitor, See Instructions, # 1 each, Refills 0, Tot. Refills 0, Maintenance, Dx: HTNCheck BP daily, 12/08/21 17:25:00 EST, Supply Start Date: 12/08/21 Status: Orderedlisinopril 40 mg oral tablet 1 tablet, By Mouth, Daily, FOR BLOOD PRESSURE., # 30 tablet, 5 Refills, Maintenance, 08/17/22 19:05:00 EST[facility], 163, cm, 02/21/22 17:19:00 EDT, Height Start Date: 08/17/22 Status: OrderedMedrol 4 mg oral tablet 1 pack/packet, By Mouth, Once, as directed on package labeling with food for knee pain, # 21 tablet,0 Refills, Soft Stop, 09/12/22 9:07:00 EST, Tablet, [facility], Partial fillupon patient request if the prescription is for... Start Date: 09/12/22 Status: OrderedMetoprolol Succinate ER 50 mg oral tablet, extended release 1 tablet, By Mouth, Daily, Labs overdue. Order in system. Please go to any [facility], #30 tablet, 2 Refills, Maintenance, 07/26/22 16:19:00 EDT, [facility], 163, cm, 02/21/22 17:19:00 EDT, Height Start Date: 07/26/22 Status: Orderednabumetone 750 mg oral tablet 1 tablet = 750 mg, By Mouth, 2 times a day, with food for knee pain start after finishing Medrol, # 60 tablet, 1 Refills, Maintenance, 09/12/22 9:08:00 EST, Tablet, [facility], Partial fill upon patient request if the prescrip... Start Date: 09/12/22 Status: OrderedtraMADol 50 mg oral tablet 1 tablet = 50 mg, By Mouth, Every 6 hours, PRN Pain , Severe, for knee pain [facility] PAT reviewed, # 56 tablet, 0 Refills, Maintenance, 09/20/22 16:54:00 EST, Tablet, [facility], Partial fill upon patient request if the prescripti... Start Date: 09/20/22 Stop Date: 10/04/22 Status: OrderedTylenol 8 Hour 650 mg oral tablet, extended release 2 tablet = 1,300 mg, By Mouth, Every 8 hours, PRN as needed for pain, for back pain, # 50 tablet, 6 Refills, Maintenance, 02/05/20 11:19:00 EDT, ER Tablet, [facility], 163, cm, 10/09/18 14:13:00 EST, Height Start Date: 02/05/20 Status: Ordered Problem List Condition Confirmation Course Effective Dates Status Health Stat us Informant Essential Confirmed Active hypertension Low back pain Confirmed Active Obese class I Confirmed Active Obesity (BMI Confirmed Active 30.0-34.9) Social History Social History Type Response Smoking Status Never smoker; Tobacco user i n household: No entered on: 04/23/18 Sex Patient Care team information Care Team PersonnelName: Jody Mooney Position: [facility] PCO Associate Professional Member Role: PCP Address: Address: [address] [place] [id number]- Care Team Related PersonsName: RADHA DAMON Address: home [address] [place] [address]
--- OUTSIDE RECORDS SUMMARY | 2022-11-14 19:33 | XMS_ITS | Continuity of Care Document ---
:[address] Organization [facility] Address [address] [place] [address]- Care Team Providers Name Role Phone Passer Jody HARTMAN Primary Care Physician Encounter [facility] Date(s): 09/10/22 - 09/10/[address] [address]- Discharge Disposition: A-D/C Home Attending Physician: Nigel BLUM, Stan Watkins Admitting Physician: Stan Manning MD Referring Physician: Not on Staff, Referring MD Allergies, Adverse Reactions, Alerts No Known Allergies Immunizations Given and Recorded Vaccine Date Status Refusal Reason SARS-CoV-2 (COVID-19) [id number] vaccine 03/21/21 Recorded tetanus/diphtheria/pertussis, acel(Tdap) 09/09/17 Given tetanus/diphtheria/pertussis, acel(Tdap) 10/01/16 Recorde d Medications amLODIPine 10 mg oral tablet 1 tablet, By Mouth, Daily, FOR BLOOD PRESSURE, # 30 tablet, 6 Refills, Maintenance, 01/10/22 14:39:00 EDT, [facility], 163, cm, 01/10/22 14:11:00 EDT, Height Start Date: 01/10/22 Status: Orderedchlorthalidone 25 mg oral tablet 1, tablet, By Mouth, Daily, Labs overdue. Order in system. Please go to any [facility], # 30 tablet, Refills 2, Tot. Refills 2, Maintenance, 07/26/22 16:18:00 EDT, Route to Pharmacy Electronically, [id number], 163,... Start Date: 07/26/22 Status: OrderedCrutches See Instructions, # 1 pair, Maintenance, Right foot sprain, 12/05/10 22:32:39 Start Date: 12/05/10 Status: OrderedCrutches See Instructions, 1, 0, 0, 09/08/07 9:56:56, use as directed, [facility] Start Date: 09/08/07 Status: OrderedDigital Home BP monitor Digital Home BP monitor, See Instructions, # 1 each, Refills 0, Tot. Refills 0, Maintenance, Dx: HTNCheck BP daily, 12/08/21 17:25:00 EST, Supply Start Date: 12/08/21 Status: Orderedibuprofen 600 mg oral tablet 600 mg, 1, tablet, By Mouth, 3 times a day, for 30 days, # 90 tablet, Refills 0, Tot. Refills 0, Acute 10/10/22 13:37:00 EST, 09/10/22 13:37:00 EST, Route to Pharmacy Electronically, [id number], Partial fill upon patient reques... Start Date: 09/10/22 Stop Date: 10/10/22 Status: Orderedlisinopril 40 mg oral tablet 1 tablet, By Mouth, Daily, FOR BLOOD PRESSURE., # 30 tablet, 5 Refills, Maintenance, 08/17/22 19:05:00 EST, [facility], 163, cm, 02/21/22 17:19:00 EDT, Height Start Date: 08/17/22 Status: OrderedMetoprolol Succinate ER 50 mg oral tablet, extended release 1 tablet, By Mouth, Daily, Labs overdue. Order in system. Please go to any [facility], #30 tablet, 2 Refills, Maintenance, 07/26/22 16:19:00 EDT, [facility], 163, cm, 02/21/22 17:19:00 EDT, Height Start Date: 07/26/22 Status: OrderedoxyCODONE 5 mg oral tablet 5 mg, 1, tablet, By Mouth, Every 6 hours, PRN, for 5 days, # 16 tablet, Refills 0, Tot. Refills 0, Acute 09/15/22 13:38:00 EST, Pain , Severe, 09/10/22 13:38:00 EST, Route to Pharmacy Electronically, [id number], Partial fill up... Start Date: 09/10/22 Stop Date: 09/15/22 Status: OrderedTylenol 8 Hour 650 mg oral tablet, extended release 2 tablet = 1,300 mg, By Mouth, Every 8 hours, PRN as needed for pain, for back pain, # 50 tablet, 6 Refills, Maintenance, 02/05/20 11:19:00 EDT, ER Tablet, [id number], 163, cm, 10/09/18 14:13:00 EST, Height Start Date: 02/05/20 Status: Ordered Problem List Condition Confirmation Course Effective Dates Status Health Stat us Informant Essential Confirmed Active hypertension Low back pain Confirmed Active Obese class I Confirmed Active Obesity (BMI Confirmed Active 30.0-34.9) Results Radiology Reports Exam Date Time Procedure Performing Provider Status 09/10/22 11:00 AM Knee 3 Views Left Viji Calhoun; Curtis (Jamesangely burgess) Notes:(Knee 3 Views Left) Reason For Exam: PainRESULT: Knee 3 Views Left Knee 3 Views Left Hx of Present Illness: Work r t injury in February. Progressing. Reports increasing L knee swelling. Gait steady, however, limping. Able to wiggle toes on affected extrem.; Reason: Pain; Clinical Question(s): Fracture COMPARISON: None. FINDINGS: There is no evidence of acute or healing fracture, dislocation or bone lesion. No arthritic changes. No osteochondral defects or intra-articular loose bodies. No evidence of joint effusion. IMPRESSION: Normal. WSN: [id number] Ordering Physician: Stan Manning Dictated By: Gray Bond MD, V Dictated Date/Time: 09/10/22 11:06 a Reviewed By: Gray Bond MD, V Signed By: Gray Bond MD, V Signed Date/Time: 09/10/22 11:06 am Transcribed By: VAZQUEZ Transcribed Date/Time: 09/10/22 11:05 am Vital Signs Most recent to oldest [Reference Range]: 1 Height 163 cm (09/10/22 10:40 AM) Weight 84.7 kg (09/10/22 10:40 AM) Oxygen Saturation [94-100 %] 99 % (09/10/22 10:40 AM) Pulse Rate [55-90 bpm] 83 bpm (09/10/22 10:40 AM) Blood Pressure [90-138/55-84 mm Hg] 180/107 mm Hg *H* (09/10/22 10:40 AM) Respiratory Rate [16-30 br/min] 16 br/min (09/10/22 10:40 AM) Temperature [96.8-100.4 DegF] 97.3 DegF (09/10/22 10:40 AM) Mode of Delivery (Oxygen) Room air (09/10/22 10:40 AM) Temperature Route Temporal (09/10/22 10:40 AM) Dry Weight 84.7 kg (09/10/22 10:40 AM) Social History Social History Type Response Smoking Status Never smoker; Tobacco user i n household: No entered on: 04/23/18 Sex Note Nigel BLUM, Stan Watkins: PERFORM Event Display: Patient Education Leaflets Authored Date: [id number] Knee Sprain ?? [id number] Knee Sprain A sprain is an injury to the ligaments or capsule that holds a joint together. There are no broken bones. Most sprains take 3 to 6 weeks to heal. If it's a severe sprain where the ligament is completely torn, it can take months to recover. Most knee sprains are treated with a splint, knee immobilizer brace, or elastic wrap for support. Severe sprains may rarely require surgery. Home care ??? Stay off the injured leg as much as possible until you can walk on it without pain. If you have a lot of pain with walking, crutches or a walker may be prescribed. (These can be rented or purchased at many pharmacies and surgical or orthopedic supply stores). Follow your healthcare provider's advice about when to begin putting weight on that leg. ??? Keep your leg raised (elevated) to reduce pain and swelling. When sleeping, place a pillow under the injured leg. When sitting, support the injured leg so it's above heart level. This is very important during the first 48 hours. ??? Apply an ice pack over the injured area for 15 to 20 minutes every??2 to 3 ??hours. You should do this for ??the first??24 to 48 hours.??To make an ice pack, put ice cubes in a plastic bag that seals at the top. Wrap the bag in a thin towel. Continue to use ice packs to ease pain and swelling as needed. As the ice melts, be careful to avoid getting your wrap, splint, or cast wet. After 48 to 72 hours or asdirected by your healthcare provider, apply heat??(warm shower or??warm bath)??for 15 to 20 minutes several times a day, or alternate ice and heat.??You can place the ice pack directly over the splint.If you have to wear a vdls-ofn-thcz??knee brace, you can open it to apply the ice pack, or heat, directly to the knee. Never put ice directly on the skin. Always wrap the ice in a towel or other type of cloth. ??? You may use??cenu-zuw-lxdfzep pain medicine??to control pain, unless another pain medicine was prescribed. If you have chronic liver or kidney disease, ever had a stomach ulcer or gastrointestinal bleeding, or take a blood thinner, talk with your healthcare provider before??using these medicines. ??? If you were given a splint, keep it completely dry at all times. Bathe with your splint out of the water, protected with??2 large plastic bags, sealed with rubber bands or tape at the top end. If a fiberglass splint gets wet, you can dry it with a chair pad maker set to cool. If you have a??amyx-ihk-cfog??knee brace, you can remove this to bathe, unless told otherwise. ?? Follow-up care Follow up with your doctor, or as advised. Any X-rays you had today don???t show any broken bones, breaks, or fractures. Sometimes fractures don???t show up on the first X-ray. Bruises and sprains cansometimes hurt as much as a fracture. These injuries can take time to heal completely. If your symptoms don???t improve or they get worse, talk with your doctor. You may need a repeat X- ray.??If X-rayswere taken, you will be told of any new findings that may affect your care. ?? Call 911 Call 911 if you have: ?Shortness of breath ?Chest pain ?? When to get medical advice Call your healthcare provider right away??if any of these occur: ??? The??splint??or knee immobilizer??brace??becomes wet or soft ??? The fiberglass cast or splint stays wet for more than 24 hours ???Pain or swelling get worse ??? The injured leg??or??toes become cold, blue, numb, or tingly ?? Last Reviewed Date: 2021 ?? [id number] [employer]. All rights reserved. This information is not intended as a substitute for professional medical care. Always follow your healthcare professional's instructions. ?? XR Knee - left 3 Views BHSPowerscribe , CIS S: TRANSCRIBE Gray Bond MD, V: VERIFY Event Display: Result: Authored Date: Knee 3 Views Left Hx of Present Illness: Work r t injury in February. Progressing. Reports increasing L knee swelling. Gait steady, however, limping. Able to wiggle toes on affected extrem.; Reason: Pain; Clinical Question(s): Fracture COMPARISON: None. FINDINGS: There is no evidence of acute or healing fracture, dislocation or bone lesion. No arthritic changes. No osteochondral defects or intra-articular loose bodies. No evidence of joint effusion. IMPRESSION: Normal. WSN: [id number] Ordering Physician: Stan Manning Dictated By: Gray Bond MD, V Dictated Date/Time: 09/10/22 11:06 a Reviewed By: Gray Bond MD, V Signed By: Gray Bond MD, V Signed Date/Time: 09/10/22 11:06 am Transcribed By: VAZQUEZ Transcribed Date/Time: 09/10/22 11:05 am Patient Care team information Care Team PersonnelName: Jody Mooney Position: [facility] PCO Associate Professional Member Role: PCP Address: Address: [address] [place] [id number]- Name: Suzanen Bear RN Position: [facility] ED RN W/OE and Tasks Member Role: Patient Care Provider Name: Stan Manning MD Position: [facility] ED Medicine MD Member Role: Admitting Physician Address: Address: [address] [place] [address] [place] [address]- Care Team Related PersonsName: RADHA DAMON Address: home [address] [place] [address]
--- OUTSIDE RECORDS SUMMARY | 2022-11-14 19:33 | XMS_ITS | Continuity of Care Document ---
:1985 Author Organization [facility] Address Unavailable , Care Team Providers Name Role Phone Jody Mooney Primary Care Physician [place] [facility] [place] 08/[place] [facility] Attending Physician: Tegan Ovalles MD Admitting Physician: Tegan Ovalles MD Referring Physician: Jody Mooney Allergies, Adverse Reactions, Alerts Substance Reaction Severity Status NKA Active Immunizations Given and Recorded Vaccine Date Status Refusal Reason SARS-CoV-2 (COVID-19) [id number] vaccine 03/21/21 Recorded tetanus/diphtheria/pertussis, acel(Tdap) 09/09/17 Given tetanus/diphtheria/pertussis, acel(Tdap) 10/01/16 Recorde d Medications amLODIPine 10 mg oral tablet 1 tablet, By Mouth, Daily, FOR BLOOD PRESSURE, # 30 tablet, 6 Refills, Maintenance, 07/12/21 11:52:00 EDT, [id number], 163, cm, 07/12/21 10:49:00 EDT, Height [...] 07/12/21 11:51:00 EDT, Route to Pharmacy Electronically, [facility], Partial fill upon patient request if the prescription is for a schedul... Start Date: 07/12/21 Stop Date: 08/11/21 Status: OrderedCrutches See Instructions, # 1 pair, Maintenance, Right foot sprain, 12/05/10 22:32:39 Start Date: 12/05/10 Status: OrderedCrutches See Instructions, 1, 0, 0, 09/08/07 9:56:56, use as directed, [facility] Start Date: 09/08/07 Status: Orderedlisinopril 40 mg oral tablet 1 tablet, By Mouth, Daily, FOR BLOOD PRESSURE, # 30 tablet, 6 Refills, Maintenance, 07/12/21 11:52:00 EDT, [facility], 163, cm, 07/12/21 10:49:00 EDT, Height Start Date: 07/12/21 Status: OrderedMetoprolol Succinate ER 50 mg oral tablet, extended release 1 tablet, By Mouth, Daily, # 30 tablet, 1 Refills, Maintenance, 07/12/21 11:52:00 EDT, [facility], 163, cm, 07/12/21 10:49:00 EDT, Height Start Date: 07/12/21 Status: OrderedTylenol 8 Hour 650 mg oral tablet, extended release 2 tablet = 1,300 mg, By Mouth, Every 8 hours, PRN as needed for pain, for back pain, # 50 tablet, 6 Refills, Maintenance, 02/05/20 11:19:00 EDT, ER Tablet, [facility], 163, cm, 10/09/18 14:13:00 EST, Height Start Date: 02/05/20 Status: Ordered Problem List Condition Effective Dates Status Health Status Informant Essential hypertension(Confirmed) Active Low back pain(Confirmed) Active Obesity (BMI 30.0-34.9)(Confirmed) Active Social History Social History Type Response Smoking Status Never smoker; Tobacco user i n household: No entered on: 04/23/18 Sex
--- OUTSIDE RECORDS SUMMARY | 2022-11-14 19:33 | XMS_ITS | Continuity of Care Document ---
:1985 Author Organization [facility] enter/[facility] Address [address] [place] [address]- Care Team Providers Name Role Phone Passer Jody HARTMAN Primary Care Physician [place] [facility] [place]12[place] - 10/12/22 [facility] [address]- Attending Physician: Lesia Corley Admitting Physician: AdmtrLesia Referring Physician: Admtr, Ar8 Allergies, Adverse Reactions, Alerts No Known Allergies Immunizations Given and Recorded Vaccine Date Status Refusal Reason SARS-CoV-2 (COVID-19) [id number]-1273 vaccine 03/21/21 Recorded tetanus/diphtheria/pertussis, acel(Tdap) 09/09/17 Given tetanus/diphtheria/pertussis, acel(Tdap) 10/01/16 Recorde d Medications amLODIPine 10 mg oral tablet 1 tablet, By Mouth, Daily, FOR BLOOD PRESSURE., # 30 tablet, 2 Refills, Maintenance, 09/20/22 16:53:00 EST, [facility]-, 163, cm, 09/12/22 8:19:00 EST, Height, 84.7, kg, 09/10/22 10:40:00 EST, Dry Weight Start Date: 09/20/22 Status: Orderedchlorthalidone 25 mg oral tablet 1, tablet, By Mouth, Daily, Labs overdue. Order in system. Please go to any [facility], # 30 tablet, Refills 2, Tot. Refills 2, Maintenance, 07/26/22 16:18:00 EDT, Route to Pharmacy Electronically, [id number], 163,... Start Date: 07/26/22 Status: OrderedCrutches See Instructions, # 1 pair, Maintenance, Right foot sprain, 12/05/10 22:32:39 Start Date: 12/05/10 Status: OrderedCrutches See Instructions, 1, 0, 0, 09/08/07 9:56:56, use as directed, ADS [facility] Start Date: 09/08/07 Status: OrderedDigital Home BP monitor Digital Home BP monitor, See Instructions, # 1 each, Refills 0, Tot. Refills 0, Maintenance, Dx: HTNCheck BP daily, 12/08/21 17:25:00 EST, Supply Start Date: 12/08/21 Status: Orderedlisinopril 40 mg oral tablet 1 tablet, By Mouth, Daily, FOR BLOOD PRESSURE., # 30 tablet, 5 Refills, Maintenance, 08/17/22 19:05:00 EST, [facility], 163, cm, 02/21/22 17:19:00 EDT, Height Start Date: 08/17/22 Status: OrderedMedrol 4 mg oral tablet 1 pack/packet, By Mouth, Once, as directed on package labeling with food for knee pain, # 21 tablet,0 Refills, Soft Stop, 09/12/22 9:07:00 EST, Tablet, [id number], Partial fillupon patient request if the prescription is for... Start Date: 09/12/22 Status: OrderedMetoprolol Succinate ER 50 mg oral tablet, extended release 1 tablet, By Mouth, Daily, Labs overdue. Order in system. Please go to any [facility], #30 tablet, 2 Refills, Maintenance, 07/26/22 16:19:00 EDT, [id number], 163, cm, 02/21/22 17:19:00 EDT, Height Start Date: 07/26/22 Status: Orderednabumetone 750 mg oral tablet 1 tablet = 750 mg, By Mouth, 2 times a day, with food for knee pain start after finishing Medrol, # 60 tablet, 1 Refills, Maintenance, 09/12/22 9:08:00 EST, Tablet, [id number], Partial fill upon patient request if the prescrip... Start Date: 09/12/22 Status: OrderedtraMADol 50 mg oral tablet 1 tablet = 50 mg, By Mouth, Every 6 hours, PRN Pain , Severe, for knee pain Mass PAT reviewed, # 56 tablet, 0 Refills, Maintenance, 09/20/22 16:54:00 EST, Tablet, [id number], Partial fill upon patient request if the prescripti... Start Date: 09/20/22 Stop Date: 10/04/22 Status: OrderedTylenol 8 Hour 650 mg oral tablet, extended release 2 tablet = 1,300 mg, By Mouth, Every 8 hours, PRN as needed for pain, for back pain, # 50 tablet, 6 Refills, Maintenance, 02/05/20 11:19:00 EDT, ER Tablet, [facility], 163, cm, 10/09/18 14:13:00 EST, Height [...] information Care Team PersonnelName: Jody Mooney Position: [facility] PCO Associate Professional Member Role: PCP Address: Address: [address] [place] [id number]- Care Team Related PersonsName: RADHA DAMON Address: home [address] [place] [address]
--- OUTSIDE RECORDS SUMMARY | 2022-11-14 19:33 | XMS_ITS | Continuity of Care Document ---
:1985 Author Organization [facility] enter/[facility] Address Unavailable , Care Team Providers Name Role Phone Passer Jody HARTMAN Primary Care Physician [phone] Encounter [facility] [place] Date(s): 02/05/22 - 03/07/22 [facility] Allergies, Adverse Reactions, Alerts No Known Allergies Immunizations Given and Recorded Vaccine Date Status Refusal Reason SARS-CoV-2 (COVID-19) mRNA-[id number] vaccine 03/21/21 Recorded tetanus/diphtheria/pertussis, acel(Tdap) 09/09/17 Given tetanus/diphtheria/pertussis, acel(Tdap) 10/01/16 Recorde d Medications amLODIPine 10 mg oral tablet 1 tablet, By Mouth, Daily, FOR BLOOD PRESSURE, # 30 tablet, 6 Refills, Maintenance, 01/10/22 14:39:00 EDT, [id number], 163, cm, 01/10/22 14:11:00 EDT, Height Start Date: 01/10/22 Status: Orderedchlorthalidone 25 mg oral tablet 25 mg, 1, tablet, By Mouth, Daily, # 30 tablet, Refills 6, Tot. Refills 6, Maintenance, 01/10/22 14:39:00 EDT, Route to Pharmacy Electronically, [id number], Partial fill upon patient request if the prescription is for a schedul... Start Date: 01/10/22 Stop Date: 08/08/22 Status: OrderedCrutches See Instructions, # 1 pair, Maintenance, Right foot sprain, 12/05/10 22:32:39 Start Date: 12/05/10 Status: OrderedCrutches See Instructions, 1, 0, 0, 09/08/07 9:56:56, use as directed, ADS [facility] Start Date: 09/08/07 Status: OrderedDigital Home BP monitor Digital Home BP monitor, See Instructions, # 1 each, Refills 0, Tot. Refills 0, Maintenance, Dx: HTNCheck BP daily, 12/08/21 17:25:00 EST, Supply Start Date: 12/08/21 Status: Orderedlisinopril 40 mg oral tablet 1 tablet, By Mouth, Daily, FOR BLOOD PRESSURE, # 30 tablet, 6 Refills, Maintenance, 01/10/22 14:39:00 EDT, [id number], 163, cm, 01/10/22 14:11:00 EDT, Height Start Date: 01/10/22 Status: OrderedMetoprolol Succinate ER 50 mg oral tablet, extended release 1 tablet, By Mouth, Daily, # 30 tablet, 6 Refills, Maintenance, 01/10/22 14:39:00 EDT, [id number], 163, cm, 01/10/22 14:11:00 EDT, Height Start Date: 01/10/22 Status: OrderedMobic 15 mg oral tablet 1 tablet = 15 mg, By Mouth, Daily, with food for back and knee pain, # 30 tablet, 2 Refills, Maintenance, 01/10/22 14:39:00 EDT, Tablet, [id number], Partial fill upon patient request if the prescription is for a schedule II opi... Start Date: 01/10/22 Status: OrderedTylenol 8 Hour 650 mg oral tablet, extended release 2 tablet = 1,300 mg, By Mouth, Every 8 hours, PRN as needed for pain, for back pain, # 50 tablet, 6 Refills, Maintenance, 02/05/20 11:19:00 EDT, ER Tablet, [id number], 163, cm, 10/09/18 14:13:00 EST, [...]
--- OUTSIDE RECORDS SUMMARY | 2022-11-14 19:33 | XMS_ITS | Continuity of Care Document ---
:1985 Author Organization [facility] enter/[facility] Address Unavailable , Care Team Providers Name Role Phone Passer Jody HARTMAN Primary Care Physician Encounter [facility] [place] Date(s): 02/23/22 - 04/05/22 [facility] Attending Physician: Alexander Wilde MD, I Admitting Physician: Alexander Wilde MD, I Allergies, Adverse Reactions, Alerts No Known Allergies Immunizations Given and Recorded Vaccine Date Status Refusal Reason SARS-CoV-2 (COVID-19) [id number] vaccine 03/21/21 Recorded tetanus/diphtheria/pertussis, acel(Tdap) 09/09/17 Given tetanus/diphtheria/pertussis, acel(Tdap) 10/01/16 Recorde d Medications amLODIPine 10 mg oral tablet 1 tablet, By Mouth, Daily, FOR BLOOD PRESSURE, # 30 tablet, 6 Refills, Maintenance, 01/10/22 14:39:00 EDT, [facility], 163, cm, 01/10/22 14:11:00 EDT, Height Start Date: 01/10/22 Status: Orderedchlorthalidone 25 mg oral tablet 25 mg, 1, tablet, By Mouth, Daily, # 30 tablet, Refills 6, Tot. Refills 6, Maintenance, 01/10/22 14:39:00 EDT, Route to Pharmacy Electronically, [id number], Partial fill upon patient request if [...] tablet, 6 Refills, Maintenance, 01/10/22 14:39:00 EDT, [facility], 163, cm, 01/10/22 14:11:00 EDT, Height Start Date: 01/10/22 Status: OrderedMetoprolol Succinate ER 50 mg oral tablet, extended release 1 tablet, By Mouth, Daily, # 30 tablet, 6 Refills, Maintenance, 01/10/22 14:39:00 EDT, [facility], 163, cm, 01/10/22 14:11:00 EDT, Height Start Date: 01/10/22 Status: OrderedMobic 15 mg oral tablet 1 tablet = 15 mg, By Mouth, Daily, with food for back and knee pain, # 30 tablet, 2 Refills, Maintenance, 01/10/22 14:39:00 EDT, Tablet, [id number], Partial fill upon patient request if the prescription is for a schedule II opi... Start Date: 01/10/22 Status: OrderedTylenol 8 Hour 650 mg oral tablet, extended release 2 tablet = 1,300 mg, By Mouth, Every 8 hours, PRN as needed for pain, for back pain, # 50 tablet, 6 Refills, Maintenance, 02/05/20 11:19:00 EDT, ER Tablet, [facility], 163, cm, 10/09/18 14:13:00 EST, Height Start Date: 02/05/20 Status: Ordered Problem List Condition Effective Dates Status Health Status Informant Essential hypertension(Confirmed) Active Low back pain(Confirmed) Active Obese class I(Confirmed) Active Obesity (BMI 30.0-34.9)(Confirmed) Active Social History Social History Type Response Smoking Status Never smoker; Tobacco user i n household: No entered on: 04/23/18 Sex
--- OUTSIDE RECORDS SUMMARY | 2022-11-14 19:33 | XMS_ITS | Continuity of Care Document ---
:1985 Author Organization [facility] Address [address] [place] [address]- Care Team Providers Name Role Phone Passer Jody HARTMAN Primary Care Physician [phone] Encounter [facility] [place] [id number] Date(s): 02/05/20 - 03/06/20 [facility]/[address] [address]- [place] Attending Physician: Lesia Corley Admitting Physician: Lesia Corley Referring Physician: AdmtrLesia Allergies, Adverse Reactions, Alerts Substance Reaction Severity Status NKA Active Immunizations Given and Recorded Vaccine Date Status Refusal Reason tetanus/diphtheria/pertussis, acel(Tdap) 09/09/17 Given Medications amLODIPine 10 mg oral tablet 1 tablet, By Mouth, Daily, FOR BLOOD PRESSURE, # 30 tablet, 6 Refills, Maintenance, 02/05/20 11:19:00 EDT, [id number], 163, cm, 10/09/18 14:13:00 EST, Height Start Date: 02/05/20 Status: OrderedCrutches See Instructions, # 1 pair, Maintenance, Right foot sprain, 12/05/10 22:32:39 Start Date: 12/05/10 Status: OrderedCrutches See Instructions, 1, 0, 0, 09/08/07 9:56:56, use as directed, ADS [facility] Start Date: 09/08/07 Status: Orderedhydrochlorothiazide 25 mg oral tablet 1, tablet, By Mouth, Daily, FOR BLOOD PRESSURE., # 30 tablet, Refills 6, Tot. Refills 6, Maintenance, 02/05/20 11:19:00 EDT, Route to Pharmacy Electronically, [id number], 163, cm, 10/09/18 14:13:00 EST, Height Start Date: 02/05/20 Status: Orderedlisinopril 40 mg oral tablet 1 tablet, By Mouth, Daily, FOR BLOOD PRESSURE, # 30 tablet, 6 Refills, Maintenance, 02/05/20 11:19:00 EDT, [facility], 163, cm, 10/09/18 14:13:00 EST, Height Start Date: 02/05/20 Status: Orderedmetoprolol 50 mg oral tablet, extended release 50 mg, 1, tablet, By Mouth, Daily, for blood pressure, # 30 tablet, Refills 6, Tot. Refills 6, Maintenance, 02/05/20 11:19:00 EDT, Route to Pharmacy Electronically, [id number], 163, cm, 10/09/18 14:13:00 EST, Height Start Date: 02/05/20 Status: OrderedTylenol 8 Hour 650 mg oral tablet, extended release 2 tablet = 1,300 mg, By Mouth, Every 8 hours, PRN as needed for pain, for back pain, # 50 tablet, 6 Refills, Maintenance, 02/05/20 11:19:00 EDT, ER Tablet, [facility], 163, cm, 10/09/18 14:13:00 EST, Height Start Date: 02/05/20 Status: Ordered Problem List Condition Effective Dates Status Health Status Informant Essential hypertension(Confirmed) Active Low back pain(Confirmed) Active Obesity (BMI 30.0-34.9)(Confirmed) Active Social History Social History Type Response Smoking Status Never smoker; Tobacco user i n household: No entered on: 04/23/18 Sex
--- OUTSIDE RECORDS SUMMARY | 2022-11-14 19:34 | XMS_ITS | Continuity of Care Document ---
:1985 Author Organization [facility] enter/[facility] Address Unavailable , Care Team Providers Name Role Phone Passer Jody HARTMAN Primary Care Physician [phone] [place] [facility] 02/27/22 - 03/29/22 [facility] Allergies, Adverse Reactions, Alerts No Known Allergies Immunizations Given and Recorded Vaccine Date Status Refusal Reason SARS-CoV-2 (COVID-19) mRNA-2752 vaccine 03/21/21 Recorded tetanus/diphtheria/pertussis, acel(Tdap) 09/09/17 Given tetanus/diphtheria/pertussis, acel(Tdap) 10/01/16 Recorde d Medications amLODIPine 10 mg oral tablet 1 tablet, By Mouth, Daily, FOR BLOOD PRESSURE, # 30 tablet, 6 Refills, Maintenance, 01/10/22 14:39:00 EDT, [facility], 163, cm, 01/10/22 14:11:00 EDT, Height Start Date: 01/10/22 Status: Orderedchlorthalidone 25 mg oral tablet 25 mg, 1, tablet, By Mouth, Daily, # 30 tablet, Refills 6, Tot. Refills 6, Maintenance, 01/10/22 14:39:00 EDT, Route to Pharmacy Electronically, [id number], Partial fill upon patient request if [...] tablet, 6 Refills, Maintenance, 01/10/22 14:39:00 EDT, [facility], 163, cm, 01/10/22 14:11:00 EDT, Height Start Date: 01/10/22 Status: OrderedMetoprolol Succinate ER 50 mg oral tablet, extended release 1 tablet, By Mouth, Daily, # 30 tablet, 6 Refills, Maintenance, 01/10/22 14:39:00 EDT, [facility], 163, cm, 01/10/22 14:11:00 EDT, Height Start Date: 01/10/22 Status: OrderedMobic 15 mg oral tablet 1 tablet = 15 mg, By Mouth, Daily, with food for back and knee pain, # 30 tablet, 2 Refills, Maintenance, 01/10/22 14:39:00 EDT, Tablet, [facility], Partial fill upon patient request if the prescription is for a schedule II opi... Start Date: 01/10/22 Status: OrderedTylenol 8 Hour 650 mg oral tablet, extended release 2 tablet = 1,300 mg, By Mouth, Every 8 hours, PRN as needed for pain, for back pain, # 50 tablet, 6 Refills, Maintenance, 02/05/20 11:19:00 EDT, ER Tablet, [facility], 163, cm, 10/09/18 14:13:00 EST, Height Start Date: 02/05/20 Status: Ordered Problem List Condition Effective Dates Status Health Status Informant Essential hypertension(Confirmed) Active Low back pain(Confirmed) Active Obese class I(Confirmed) Active Obesity (BMI 30.0-34.9)(Confirmed) Active Social History Social History Type Response Smoking Status Never smoker; Tobacco user i n household: No entered on: 04/23/18 Sex
--- OUTSIDE RECORDS SUMMARY | 2022-11-14 19:34 | XMS_ITS | Continuity of Care Document ---
:1985 Author Organization [facility] enter/[facility] Address Unavailable , Care Team Providers Name Role Phone Passer Jody HARTMAN Primary Care Physician [phone] Encounter [facility] [place] Date(s): 03/06/22 - 04/05/22 [facility] Attending Physician: Lesia Corley Admitting Physician: Lesia Corley Referring Physician: Lesia Corley Allergies, Adverse Reactions, Alerts No Known Allergies Immunizations Given and Recorded Vaccine Date Status Refusal Reason SARS-CoV-2 (COVID-19) [id number] vaccine 03/21/21 Recorded tetanus/diphtheria/pertussis, acel(Tdap) 09/09/17 Given tetanus/diphtheria/pertussis, acel(Tdap) 10/01/16 Recorde d Medications amLODIPine 10 mg oral tablet 1 tablet, By Mouth, Daily, FOR BLOOD PRESSURE, # 30 tablet, 6 Refills, Maintenance, 01/10/22 14:39:00 EDT, [id number], 163, cm, 01/10/22 14:11:00 EDT, Height Start Date: 01/10/22 Status: Orderedchlorthalidone 25 mg oral tablet 25 mg, 1, tablet, By Mouth, Daily, # 30 tablet, Refills 6, Tot. Refills 6, Maintenance, 01/10/22 14:39:00 EDT, Route to Pharmacy Electronically, [id number], Partial fill upon patient request if the [...] tablet, 6 Refills, Maintenance, 01/10/22 14:39:00 EDT, [facility], 163, cm, 01/10/22 14:11:00 EDT, Height Start Date: 01/10/22 Status: OrderedMetoprolol Succinate ER 50 mg oral tablet, extended release 1 tablet, By Mouth, Daily, # 30 tablet, 6 Refills, Maintenance, 01/10/22 14:39:00 EDT, [facility], 163, cm, 01/10/22 14:11:00 EDT, Height Start Date: 01/10/22 Status: OrderedMobic 15 mg oral tablet 1 tablet = 15 mg, By Mouth, Daily, with food for back and knee pain, # 30 tablet, 2 Refills, Maintenance, 01/10/22 14:39:00 EDT, Tablet, [facility], Partial fill upon patient request if the prescription is for a schedule II opi... Start Date: 01/10/22 Status: OrderedTylenol 8 Hour 650 mg oral tablet, extended release 2 tablet = 1,300 mg, By Mouth, Every 8 hours, PRN as needed for pain, for back pain, # 50 tablet, 6 Refills, Maintenance, 02/05/20 11:19:00 EDT, ER Tablet, [facility], 163, cm, 10/09/18 14:13:00 EST, Height Start Date: 02/05/20 Status: Ordered Problem List Condition Effective Dates Status Health Status Informant Essential hypertension(Confirmed) Active Low back pain(Confirmed) Active Obese class I(Confirmed) Active Obesity (BMI 30.0-34.9)(Confirmed) Active Social History Social History Type Response Smoking Status Never smoker; Tobacco user i n household: No entered on: 04/23/18 Sex
--- OUTSIDE RECORDS SUMMARY | 2022-11-14 19:34 | XMS_ITS | Continuity of Care Document ---
:1985 Author Organization [facility] enter/[facility] Address Unavailable , Care Team Providers Name Role Phone Passer Jody HARTMAN Primary Care Physician [phone] Encounter [facility] [place] Date(s): 08/11/21 - 09/10/21 [facility] Attending Physician: Lesia Corley Admitting Physician: Lesia Corley Referring Physician: Lesia Corley Allergies, Adverse Reactions, Alerts Substance Reaction Severity Status NKA Active Immunizations Given and Recorded Vaccine Date Status Refusal Reason SARS-CoV-2 (COVID-19) [id number] vaccine 03/21/21 Recorded tetanus/diphtheria/pertussis, acel(Tdap) 09/09/17 Given tetanus/diphtheria/pertussis, acel(Tdap) 10/01/16 Recorde d Medications amLODIPine 10 mg oral tablet 1 tablet, By Mouth, Daily, FOR BLOOD PRESSURE, # 30 tablet, 6 Refills, Maintenance, 07/12/21 11:52:00 EDT, [facility], 163, cm, 07/12/21 10:49:00 EDT, Height [...] 07/12/21 11:51:00 EDT, Route to Pharmacy Electronically, [facility], Partial fill upon patient request if the prescription is for a schedul... Start Date: 07/12/21 Stop Date: 08/11/21 Status: OrderedCrutches See Instructions, # 1 pair, Maintenance, Right foot sprain, 12/05/10 22:32:39 Start Date: 12/05/10 Status: OrderedCrutches See Instructions, 1, 0, 0, 09/08/07 9:56:56, use as directed, [facility] Start Date: 09/08/07 Status: Orderedlisinopril 40 mg oral tablet 1 tablet, By Mouth, Daily, FOR BLOOD PRESSURE, # 30 tablet, 6 Refills, Maintenance, 07/12/21 11:52:00 EDT, [facility], 163, cm, 07/12/21 10:49:00 EDT, Height Start Date: 07/12/21 Status: OrderedMetoprolol Succinate ER 50 mg oral tablet, extended release 1 tablet, By Mouth, Daily, # 30 tablet, 1 Refills, Maintenance, 07/12/21 11:52:00 EDT, [facility], 163, cm, 07/12/21 10:49:00 EDT, Height Start Date: 07/12/21 Status: OrderedTylenol 8 Hour 650 mg oral tablet, extended release 2 tablet = 1,300 mg, By Mouth, Every 8 hours, PRN as needed for pain, for back pain, # 50 tablet, 6 Refills, Maintenance, 02/05/20 11:19:00 EDT, ER Tablet, [facility], 163, cm, 10/09/18 14:13:00 EST, Height Start Date: 02/05/20 Status: Ordered Problem List Condition Effective Dates Status Health Status Informant Essential hypertension(Confirmed) Active Low back pain(Confirmed) Active Obesity (BMI 30.0-34.9)(Confirmed) Active Social History Social History Type Response Smoking Status Never smoker; Tobacco user i n household: No entered on: 04/23/18 Sex
--- OUTSIDE RECORDS SUMMARY | 2022-11-14 19:34 | XMS_ITS | Continuity of Care Document ---
:1985 Author Organization [facility] Address [address] [place] [address]- Care Team Providers Name Role Phone Jody Mooney Primary Care Physician [phone] Encounter [facility] [place] Date(s): 02/05/20 - 02/12/20 [facility]/[address] [address]- [place] Attending Physician: Jody Mooney Allergies, Adverse Reactions, Alerts Substance Reaction Severity Status NKA Active Immunizations Given and Recorded Vaccine Date Status Refusal Reason tetanus/diphtheria/pertussis, acel(Tdap) 09/09/17 Given Medications amLODIPine 10 mg oral tablet 1 tablet, By Mouth, Daily, FOR BLOOD PRESSURE, # 30 tablet, 6 Refills, Maintenance, 02/05/20 11:19:00 EDT, [facility], 163, cm, 10/09/18 14:13:00 EST, [...] 02/05/20 11:19:00 EDT, Route to Pharmacy Electronically, [facility], 163, cm, 10/09/18 14:13:00 EST, Height Start Date: 02/05/20 Status: Orderedlisinopril 40 mg oral tablet 1 tablet, By Mouth, Daily, FOR BLOOD PRESSURE, # 30 tablet, 6 Refills, Maintenance, 02/05/20 11:19:00 EDT, [facility], 163, cm, 10/09/18 14:13:00 EST, Height Start Date: 02/05/20 Status: Orderedmetoprolol 50 mg oral tablet, extended release 50 mg, 1, tablet, By Mouth, Daily, for blood pressure, # 30 tablet, Refills 6, Tot. Refills 6, Maintenance, 02/05/20 11:19:00 EDT, Route to Pharmacy Electronically, [facility], 163, cm, 10/09/18 14:13:00 EST, Height Start Date: 02/05/20 Status: OrderedTylenol 8 Hour 650 mg oral tablet, extended release 2 tablet = 1,300 mg, By Mouth, Every 8 hours, PRN as needed for pain, for back pain, # 50 tablet, 6 Refills, Maintenance, 02/05/20 11:19:00 EDT, ER Tablet, [facility], 163, cm, 10/09/18 14:13:00 EST, Height Start Date: 02/05/20 Status: Ordered Problem List Condition Effective Dates Status Health Status Informant Essential hypertension(Confirmed) Active Low back pain(Confirmed) Active Obesity (BMI 30.0-34.9)(Confirmed) Active Social History Social History Type Response Smoking Status Never smoker; Tobacco user i n household: No entered on: 04/23/18 Sex
[2022-11-14 19:44] LABS: MANUAL DIFF FLAG NO
[2022-11-14 19:47] LABS: Basophils Percent Auto 0.4 % (0-2); Eosinophils Absolute Auto 0.1 X10*3/uL (0.0-0.4); Eosinophils Percent Auto 1.9 % (0-4); Hematocrit 43.6 % (42.0-52.0); Imm Gran Abs Auto 0.01 X10*3/uL (0.00-0.03); Imm Gran Pct Auto 0.1 % (0.0-0.4); Lymphocytes Absolute Auto 2.3 X10*3/uL (1.2-4.9); Lymphocytes Percent Auto 33.2 % (20-40); Mean Corpuscular HGB Conc 34.4 g/dl (31.0-36.0); Mean Corpuscular Hemoglobin 28.7 pg (27.0-33.0); Mean Corpuscular Volume 83.5 fL (80.0-98.0); Mean Platelet Volume 11.3 fL (9.4-12.4); Monocytes Absolute Auto 0.5 X10*3/uL (0.1-1.2); Monocytes Percent Auto 6.6 % (2-11); Neutrophils Percent Auto 57.8 % (45-73); Platelet Count 217 X10*3/uL (160-400); Red Blood Count 5.22 X10*6/uL (4.60-5.80); Red Cell Distribution Width 12.8 % (11.0-16.0)
--- NOTE | 2022-11-14 19:58 | PC.NURSE ---
pt AOx3, IV inserted. youth nutritional monitor on - NSR. chest x ray done. will continue to monitor.
[2022-11-14 20:01] LABS: Alanine Aminotransferase 26 U/L (0-40); Albumin Level 4.6 g/dL (3.5-5.0); Alkaline Phosphatase 58 U/L (39-117); Anion Gap 14 (12-20); Aspartate Amino Transferase 25 U/L (5-37); Bilirubin Total 0.7 mg/dL (0.0-1.0); Blood Urea Nitrogen 16 mg/dL (9-16); Calcium 9.6 mg/dL (8.4-10.2); Carbon Dioxide 28 mmol/L (22-29); Chloride 102 mmol/L (96-108); Creatinine Clr Calc Pharmacy 91.1; Estimated Glomerular Filt Rate > 60; Glucose Random 127 mg/dL (60-115); Lipase 26 U/L (8-78); Sodium 140 mmol/L (135-145); Total Protein 7.4 g/dL (6.5-8.0)
[2022-11-14 20:06] LABS: COVID-19 Test Negative (Negative); IDNOW Serial# 16C4AD1C; IDNOW Serial# BCCEAD1C; Influenza A Negative (Negative); Influenza B2 Negative (Negative)
[2022-11-14 20:07] LABS: B Type Natriuretic Peptide 15 pg/mL (<100)
[2022-11-14 20:09] LABS: Troponin-I High Sensitivity 7.6 ng/L (<3.5-35.0)
[2022-11-14] MEDS: Labetalol HCL 100 MG/20 ML VIAL IVPUSH (20:10)
--- NOTE | 2022-11-14 20:11 | PC.NURSE ---
pt medicated with IVP labetalol. vss, master brewer nsr
[2022-11-14] MEDS: iohexoL 350 MG/ML 100 ML INFUS..BTL IV (20:29)
--- NOTE | 2022-11-14 21:22 | PC.NURSE ---
assumed care of pt at 2100, pt remains hypertensive, other vss, provider aware.
[2022-11-14 21:36] LABS: Appearance Urine Clear; Color Urine Yellow; Glucose Urine UA Negative (Negative); Leukocyte Esterase Urine Negative (Negative); Nitrite Urine Negative (Negative); PH 6.5 (5.0-9.0); Specific Gravity - Urine >= 1.030 (1.005-1.025); Urine Blood Negative (Negative); Urine Ketones Negative (Negative); Urine Protein Negative (Neg-Trace)
[2022-11-14] MEDS: hydrALAZINE HCl 20 MG/ML VIAL 5 MG IVPUSH (22:03)
--- NOTE | 2022-11-14 23:15 | PC.NURSE ---
pt resting quietly, denies any pain at this time, med rec complete via photos of rx bottles from pt.
== END 2022-11-14 23:22 | disposition home or self-care (01) ==
PROVIDERS: Nurse Practitioner Family; Emergency Provider Student in an Organized Health Care Education/Training Program; PCP Internal Medicine
DX: R07.9 Chest pain, unspecified (principal); I16.9 Hypertensive crisis, unspecified; Z20.822 Contact with and (suspected) exposure to COVID-19; I10 Essential (primary) hypertension; Z79.899 Other long term (current) drug therapy
CPT/HCPCS: 71046; 71275; 80053; 81003; 83690; 83880; 84484; 85025; 87502; 87635; 93005; 96374; 96375; 99284; 99285; Q9967

== ENCOUNTER 2025-03-30 00:44 | Emergency (ER) | payer OTHER, SELFPAY ==
[2025-03-30] VITALS (11 sets, daily range): BP systolic 128–233; BP diastolic 68–151; PULSE 66–86; RESP 16–18; TEMP 36.2–36.7; O2SAT 97–98; BMI 29.2
[2025-03-30] MEDS: Tetracaine HCl/PF 0.5% Oph Sol 4 ML DROPS 1 DROP EYE-BOTH (02:04)
--- NOTE | 2025-03-30 02:25 | ED.EYEPROB ---
HPI - Eye Problem General Chief complaint: Eye Problems Stated complaint: eye problems/exposure Time Seen by Provider: 03/30/25 01:44 Source: patient and family Mode of arrival: ambulatory Limitations: no limitations History of Present Illness ED Provider: DR. Steel HPI Narrative: 39-year-old male came in for evaluation of bilateral eye redness and irritation after concrete splashed into both eyes yesterday morning at work, patient been having blurry vision and a redness of both eyes with itching. Patient with history of hypertension taking 4 medications amlodipine, metoprolol, HCTZ, lisinopril patient did not take his medication yesterday. No chest pain, no shortness of breath, no headache, no abdominal pain. Related Data Home Medications ?Medication ?Instructions ?Recorded ?Confirmed amlodipine 10 mg tablet 10 mg PO DAILY 11/14/22 11/14/22 hydrochlorothiazide 25 mg tablet 25 mg PO DAILY 11/14/22 11/14/22 lisinopril 40 mg tablet 40 mg PO DAILY 11/14/22 11/14/22 metoprolol succinate 50 mg 50 mg PO DAILY 11/14/22 11/14/22 tablet,extended release 24 hr Previous Rx's ?Medication ?Instructions ?Recorded albuterol sulfate 90 mcg/actuation 2 puff inhalation Q4-6H PRN 09/14/20 aerosol inhaler shortness of breath or wheezing #18 grams azithromycin 250 mg tablet 250 mg PO DAILY 5 days #6 tabs 09/14/20 (Zithromax Z-Cale) benzonatate 100 mg capsule 100 mg PO BID PRN cough #14 caps 09/14/20 (Tessalon Perles) erythromycin 5 mg/gram (0.5 %) eye 0.5 inch ophthalmic (eye) QID #50 03/30/25 ointment grams Allergies Allergy/AdvReac Type Severity Reaction Status Date / Time No Known Allergies Allergy Verified 03/30/25 00:58 Review of Systems Review of Systems: All other systems are reviewed and are negative Constitutional: Reports as per HPI and Reports no additional constitutional complaints Eyes: Reports as per HPI and Reports no additional eye complaints Reports system reviewed and no additional complaints, except as documented Cardiovascular: Reports as per HPI and Reports no additional cardiovascular complaints Respiratory: Reports as per HPI and Reports no additional respiratory complaints Gastrointestinal: Reports as per HPI and Reports no additional gastrointestinal complaints Genitourinary: Reports no additional female genitourinary complaints Musculoskeletal: Reports no additional musculoskeletal complaints Skin/Breast: Reports system reviewed and no additional complaints, except as docu Psychiatric: Reports no additional psychiatric complaints Endocrine: Reports no additional endocrine complaints Hematologic/Lymphatic: Reports no additional hematologic/lymphatic complaints Allergic/Immunologic: Reports no additional allergic/immunologic complaints Reports system reviewed and no additional complaints, except as documented and Reports Abnormal speech present [facility] Past Medical History Medical History Hypertension Social History Social History Alcohol intake: never Smoked in Last 30 Days: No Use of substances other than those prescribed or required for medical reasons: No Advance Directives: No Advance Directives Information Provided: Yes Do you have a plan to hurt others: No Plan Physical Exam Vital Signs: Vital Signs: Last Vital Signs Temp 97.2 F 03/30/25 04:48 Pulse 72 03/30/25 04:48 Resp 16 03/30/25 04:17 BP 209/127 H 03/30/25 04:48 Pulse Ox 98 03/30/25 04:17 O2 Del Method Room Air 03/30/25 04:17 BMI result Body Mass Index 29.2 Vital signs have been reviewed and appear to be correct. Blood pressure elevated. Heart rate normal. Respiratory rate normal. Temperature normal. Oxygen saturation normal. Appearance: Alert. Oriented X3. No acute distress. Head: Normal external exam. Normocephalic. Atraumatic. No Pan signs noted. No raccoon eyes noted Eyes: VA right 20/100 left 20/100 bilateral 20/100, PH in both eyes 7 post irrigation. General: appearance normal, both eyes and all related structures Visual Wetzel: normal visual wetzel by confrontation Alignment and Position: alignment normal and position normal Periorbital: Normal to inspection. Eyelids: Bilateral eyelid swelling both upper and lower, creamy white discharge from both eyes. Conjunctivae: conjunctivae injection Sclerae: scleral injection Corneas: corneas normal, no fluorescein uptake before or after irrigation. Pupils: Equal, round and reactive pupils present and Pupil accommodation reflex normal EOM: EOM abnormal (Limited abduction of right eye) and No Nystagmus present Direct Ophthalmoscopy: normal light reflex, no photophobia, no papilledema and fundi normal bilaterall ENT: TM's Normal. Pharynx normal. Uvula midline. Moist mucous membranes. No trismus noted. No drooling noted. No muffled voice noted. Neck: Normal inspection. Neck supple. FROM. No adenopathy. Thyroid Normal. No meningeal signs. No neck mass noted. CVS: Normal heart rate and rhythm. Heart sound normal. No murmurs noted. Pulses normal throughout. Respiratory: No respiratory distress. Painless inspiration. Breath sounds normal. No wheezes/rales/rhonchi noted. Chest nontender. No accessory muscle usage noted or decreased air movement noted. Abdomen: Soft and nontender. Bowel sounds normal in all 4 quadrants. No distention noted. No organomegaly noted. No visible injury noted. Back: No CVA tenderness. Full range of motion noted. Skin: Skin warm and dry. Normal skin color. Normal skin turgor. No rashes/lesions/lacerations noted. Extremities: No lower extremity edema. Extremities exhibit normal range of motion. Extremities nontender. Neuro: Oriented X 3. Cranial nerve exam: II-XII are grossly intact No motor deficit. No sensory deficit. Reflexes normal. Course Reevaluation(s) Reevaluation #1: 39-year-old male came in after having conjunctivitis after concrete splashed in his eye, patient s/p bilateral copious eyes irrigation, patient feels lays painful and irritated in both eyes, improvement of visual acuity patient normally wear a contact lens patient was instructed to refrain of using the contact lens until complete resolution of his irritation. Will prescribe erythromycin ointment. Chronic uncontrolled blood pressure patient is asymptomatic at the moment, patient has received is for home medication for blood pressure. No CP, no neurological deficit. Time: 05:00 Medications Administered Discontinued Medications Generic Name Dose Route Start Last Admin Trade Name Freq PRN Reason Stop Dose Admin Amlodipine Besylate 10 mg 03/30/25 01:56 03/30/25 02:06 Amlodipine Besylate 10 Mg Tablet PO 03/30/25 01:57 10 mg ONCE ONE Administration Protocol Fluorescein Sodium 2 strip 03/30/25 02:23 03/30/25 04:05 Fluorescein Sodium Strip EYE-BOTH 03/30/25 02:24 2 strip ONCE ONE Administration Hydrochlorothiazide 25 mg 03/30/25 01:56 03/30/25 02:04 Hydrochlorothiazide 25 Mg Tablet PO 03/30/25 01:57 25 mg ONCE ONE Administration Protocol Lisinopril 40 mg 03/30/25 01:56 03/30/25 02:06 Lisinopril 40 Mg Tablet PO 03/30/25 01:57 40 mg ONCE ONE Administration Protocol Metoprolol Tartrate 50 mg 03/30/25 01:59 03/30/25 02:05 Metoprolol Tartrate 50 Mg Tablet PO 03/30/25 02:00 50 mg ONCE ONE Administration Protocol Tetracaine HCl 1 drop 03/30/25 01:59 03/30/25 02:04 Tetracaine Hcl/Pf 0.5% Oph Kathy 4 Ml Drops EYE-BOTH 03/30/25 02:00 1 drop ONCE ONE Administration Medical Decision Making Differential Diagnosis Differential Diagnoses: The differential diagnosis associated with the presentation includes (Conjunctivitis, complicated hypertension) Admission/Observation Consideration of admission/observation: Escalation of care including admission/observation considered Discharge Plan Discharge Clinical Impression: Conjunctivitis, Hypertension Patient Disposition: Home, Self-Care Instructions: Chronic Hypertension (DC), Conjunctivitis (ED) Additional Instructions: Follow-up with your doctor your blood pressure under poor control. Do not wear your contact lens until eye pain is completely gone and no eye irritation. Prescriptions: New erythromycin 5 mg/gram (0.5 %) ointment 0.5 inch ophthalmic (eye) QID Qty: 50 0RF Rx Instructions: Applied to both eyes No Action azithromycin [Zithromax Z-Cale] 250 mg tablet 250 mg PO DAILY 5 Days Qty: 6 0RF benzonatate [Tessalon Perles] 100 mg capsule 100 mg PO BID PRN (Reason: cough) Qty: 14 0RF albuterol sulfate 90 mcg/actuation HFA aerosol inhaler 2 puff inhalation Q4-6H PRN (Reason: shortness of breath or wheezing) Qty: 18 0RF metoprolol succinate 50 mg Tablet Extended Release 24 Hr 50 mg PO DAILY amlodipine 10 mg Tablet 10 mg PO DAILY hydrochlorothiazide 25 mg Tablet 25 mg PO DAILY lisinopril 40 mg Tablet 40 mg PO DAILY Stand Alone Forms: Work/School Release Print Language: Maori
[2025-03-30] MEDS: Fluorescein Sodium STRIP 2 STRIP EYE-BOTH (04:05)
== END 2025-03-30 05:00 | disposition home or self-care (01) ==
PROVIDERS: Emergency Provider Emergency Medicine
DX: H10.33 Unspecified acute conjunctivitis, bilateral (principal); I10 Essential (primary) hypertension; Z79.899 Other long term (current) drug therapy
CPT/HCPCS: 99283; 99284